=== PATIENT | male | born 1945 | race Caucasian/White ===

== ENCOUNTER → 2016-09-01 | Outpatient (CLI) | payer OTHER, BC ==
[~2016-09-01] MED LIST: ASPI81TA82 PO; ATEN50TA8 PO; ATOR-24 PO; CHOL100010 PO; CLR10 PO; ERGO1CAP35 PO; FLUO20CA35 PO; FOLI1TAB7 PO; INDO-22 PO; NSP500 PO; OMEG10007 PO; WARF5TAB7 PO
--- NOTE | 2016-09-01 16:14 | DIAGNOSTIC IMAGING REPORT ---
CHEST 2 VIEWS ROUTINE CLINICAL HISTORY: Cough. Interstitial lung disease. COMPARISON STUDY: Chest radiograph June 13, [address] March 26, 2016. FINDINGS: There are median sternotomy wires and clips from bypass grafting. Moderate cardiomegaly is unchanged. No pneumothorax or pleural effusion is present. There is no consolidation to suggest pneumonia. Diffuse interstitial thickening has mildly progressed since exam of June 13, 2015. IMPRESSION: 1. Mild progression of diffuse interstitial thickening since exam of June 13, 2015. The findings suggest mild progression of interstitial lung disease. 2. No superimposed consolidation. 3. Moderate cardiomegaly. Electronically signed by: Gregorio Ceja M.D. 09/01/2016 4:12 PM Dictated Date/Time: 09/01/2016 4:08 PM
== END | disposition home or self-care (01) ==
LOC: C.RADBC 15:53
PROVIDERS: ATTEND Physician Assistant Medical
DX: J84.9 Interstitial pulmonary disease, unspecified (principal); R05 Cough; I51.7 Cardiomegaly

== ENCOUNTER → 2016-09-21 | Outpatient (CLI) | payer OTHER, BC | END | disposition home or self-care (01) | LOC: C.LABSPEC 10:15 | PROVIDERS: ATTEND Physician Assistant | DX: R05 Cough (principal) ==

== ENCOUNTER → 2016-10-04 | Outpatient (CLI) | payer OTHER, BC ==
--- NOTE | 2016-10-04 16:16 | DIAGNOSTIC IMAGING REPORT ---
CHEST 2 VIEWS ROUTINE HISTORY: COUGH COMPARISON: Chest 09/01/2016. FINDINGS: No pleural effusions. No pneumothorax. There are postoperative changes. Mild cardiomegaly remains unchanged. Diffuse interstitial thickening most pronounced within the periphery and lung bases persist. This is consistent with chronic interstitial lung disease. No new focal lung consolidations. No evidence for pulmonary edema. IMPRESSION: No change from the prior study. Chronic interstitial changes are again noted. Stable mild cardiomegaly. Electronically signed by: Peter Meadows M.D. 10/04/2016 4:14 PM Dictated Date/Time: 10/04/2016 4:12 PM
== END | disposition home or self-care (01) ==
LOC: C.RADBC 16:02
PROVIDERS: ATTEND Physician Assistant
DX: R05 Cough (principal)

== ENCOUNTER → 2016-12-13 | Outpatient (CLI) | payer OTHER, BC ==
--- NOTE | 2016-12-13 17:10 | DIAGNOSTIC IMAGING REPORT ---
CT OF THE CHEST WITHOUT IV CONTRAST CLINICAL HISTORY: Shortness of breath. Interstitial lung disease. COMPARISON STUDY: Chest CT March 26, 2016. CT DOSE: 387.18 mGy.cm TECHNIQUE: Axial images of the chest were obtained without IV contrast. Images were reviewed in the axial, sagittal, and coronal planes. IV contrast was not administered for this examination. A dose lowering technique was utilized adhering to the principles of ALARA. FINDINGS: Several borderline enlarged mediastinal lymph nodes are unchanged since prior exam. The heart is moderately enlarged. There are median sternotomy wires and postsurgical findings consistent with bypass grafting. There is extensive coronary artery calcification. There is no pericardial effusion. There is a small hiatal hernia. No pneumothorax or pleural effusion is present. Basilar and peripheral predominant groundglass opacities with subpleural reticulation have progressed since exam March 26, 2016. Lungs are suboptimally assessed due to respiratory motion. No honeycombing is present. There is no cavitation. No pneumothorax is present. Central airways are patent. The 5 mm left upper lobe nodule shown on prior exam is less conspicuous on this study. IMPRESSION: 1. Mild progression of basilar and peripheral predominant groundglass opacities with subpleural reticulation since CT of March 26, 2016. The findings represent interstitial lung disease and favor nonspecific interstitial pneumonia (NSIP). No superimposed consolidation. 2. Moderate cardiomegaly. Electronically signed by: Gregorio Ceja M.D. 12/13/2016 5:09 PM Dictated Date/Time: 12/13/2016 4:53 PM
== END | disposition home or self-care (01) ==
LOC: C.CTS 16:20
PROVIDERS: ATTEND Internal Medicine
DX: R06.02 Shortness of breath (principal); I51.7 Cardiomegaly

== ENCOUNTER 2017-07-03 21:20 | Inpatient (IN) | payer OTHER, BC ==
[~2017-07-03] VITALS: Ht 185.4 cm; Wt 81.0 kg
[~2017-07-03 21:20] MED LIST changes: -FOLI1TAB7 PO; +FOLI1TAB8 PO
[2017-07-03] MEDS ORDERED: SODIUM CHLORIDE 0.9% 1000ML 500 ML IV STA (21:56)
[2017-07-03 22:17] LABS: HEMATOCRIT 45.1 % (42-52); HEMOGLOBIN 15.9 g/dL (14.0-18.0); IG# 0.02 K/uL (0.00-0.02); LYMPH % 7.9 %; LYMPH ABS # 0.53 K/uL (1.2-3.4); MEAN CELL VOLUME 81.7 fL (80-100); MEAN CORPUSCULAR HEMOGLOBIN 28.8 pg (25-34); MEAN CORPUSCULAR HGB CONC 35.3 g/dl (32-36); MEAN PLATELET VOLUME 10.1 fL (7.4-10.4); MONO % 12.8 %; MONO ABS # 0.86 K/uL (0.11-0.59); PLATELET COUNT 173 K/uL (130-400); RED CELL DISTRIBUTION WIDTH CV 14.4 % (11.5-14.5); WHITE BLOOD COUNT 6.71 K/uL (4.8-10.8)
--- NOTE | 2017-07-03 22:21 | DIAGNOSTIC IMAGING REPORT ---
CHEST ONE VIEW PORTABLE CLINICAL HISTORY: EVALUATE ALTERED MENTAL STATUS/WEAKNESS pain. Dyspnea. COMPARISON STUDY: 10/04/2016 FINDINGS: Moderate stable cardiomegaly. Prior median sternotomy. Chronic interstitial changes throughout both hemithoraces. Potential superimposed infiltrate left base. IMPRESSION: Moderate stable cardiomegaly and interstitial prominence. Probable superimposed infiltrative process left base. The above report was generated using voice recognition software. It may contain grammatical, syntax or spelling errors. Electronically signed by: Abrahan Ahuja M.D. 07/03/2017 10:19 PM Dictated Date/Time: 07/03/2017 10:18 PM
[2017-07-03 22:28] LABS: INR 1.9 (0.9-1.1); PTT PATIENT 37.1 SECONDS (21.0-31.0)
--- NOTE | 2017-07-03 22:32 | DIAGNOSTIC IMAGING REPORT ---
HEAD WITHOUT CONTRAST (CT) CT DOSE: 712.55 mGy.cm HISTORY: Mental status change EVALUATE ALTERED MENTAL STATUS/WEAKNESS TECHNIQUE: Multiaxial CT images of the head were performed without the use of intravenous contrast. A dose lowering technique was utilized adhering to the principles of ALARA. Comparison: None. Findings: The paranasal sinuses and mastoid air cells are clear. The calvarium and skull base are intact. The ventricles and sulci are within normal limits. There is no mass, hematoma, midline shift, or acute infarct. Impression: No acute intracranial abnormality. The above report was generated using voice recognition software. It may contain grammatical, syntax or spelling errors. Electronically signed by: Abrahan Ahuja M.D. 07/03/2017 10:29 PM Dictated Date/Time: 07/03/2017 10:28 PM
[2017-07-03 22:40] LABS: ALBUMIN 3.1 gm/dl (3.4-5.0); CALCIUM 8.6 mg/dl (8.5-10.1); CREATININE 1.13 mg/dl (0.60-1.40); POTASSIUM 3.6 mmol/L (3.5-5.1)
[2017-07-03] MEDS ORDERED: CZR50 PO ×2 (22:46)
[2017-07-03] MEDS ORDERED: ISOS60TA25 PO ×2 (22:46)
[2017-07-03] MEDS ORDERED: LPT40 PO ×2 (22:46)
[2017-07-03] MEDS ORDERED: FLUO20CA36 PO ×2 (22:46)
[2017-07-03] MEDS ORDERED: ATEN-173 PO ×2 (22:46)
[2017-07-03] MEDS ORDERED: TNR25 PO ×2 (22:46)
[2017-07-03] MEDS ORDERED: CEFTRIAXONE SOD INJ 1 GM ADDVIAL IV STA (22:51)
[2017-07-03 22:52] LABS: TOTAL PROTEIN 7.7 gm/dl (6.4-8.2)
--- NOTE | 2017-07-03 23:34 | History and Physical ---
History & Physical Date & Time of Service: Jul 03, 2017 at 23:34 Chief Complaint: Syncope Primary Care Physician: Gael Lee M.D. History of Present Illness Source: patient, hospital records The patient is a 71-year-old male who presents to the emergency department via EMS with 2 syncopal episodes prior to arrival. He reports feeling generally sick with fever and fatigue over the past few days, and fell asleep several times earlier in the day today. His brother reportedly went to see him today and witnessed 2 episodes of syncope, that occurred during a routine conversation. His brother felt that the patient was confused yesterday when they went out to eat, and reports that his brother has not been eating or drinking well. The patient has history of idiopathic pulmonary fibrosis and wears oxygen at night. He reports taking his Coumadin as directed for atrial fibrillation, and denies any recent episodes of rapid heart rate. Family History GI malignancy Social History Smoking Status: Former Smoker Smokeless Tobacco Use: No Drug Use: none Marital Status: Housing status: lives with family Immunizations History of Influenza Vaccine: Yes Influenza Vaccine Date: Mar 01, 2005 History of Tetanus Vaccine?: No History of Pneumococcal: Unknown History of Hepatitis B Vaccine: No Multi-Drug Resistant Organisms History of MDRO: No Allergies Coded Allergies: No Known Allergies (Verified , 06/13/15) Home Medications Scheduled Atenolol (Atenolol), 50 MG PO QAM Atenolol (Tenormin), 25 MG PO QPM Atorvastatin (Lipitor), 40 MG PO DAILY Fluoxetine HCl (Fluoxetine HCl), 20 MG PO DAILY Isosorbide Mononitrate Ext Rel (Imdur Ext Rel), 60 MG PO DAILY Losartan Potassium (Losartan Potassium), 50 MG PO DAILY Warfarin Sod (Jantoven), 5 MG PO DIRECTED Review of Systems The patient denies chest pain, palpitations, shortness of breath, dyspnea on exertion, cough, lower extremity swelling, sore throat, fevers, chills, sweats, nausea, vomiting, diarrhea , constipation, abdominal pain, pelvic pain, blood in urine or stool, dysuria, urinary frequency or urgency, rash, abnormal bruising or bleeding, imbalance, focal weakness, back or neck pain, or night sweats. The review of systems is otherwise negative other than for that already noted above, and at least 10 systems have been reviewed. Physical Exam Vital Signs Date Time Temp Pulse Resp B/P (MAP) Pulse Ox O2 Delivery O2 Flow Rate FiO2 07/03/17 22:11 Nasal Cannula 2.0 07/03/17 22:01 117/66 07/03/17 21:50 80 21 98 07/03/17 21:39 74 18 123/77 95 Nasal Cannula 2.0 07/03/17 21:33 89 07/03/17 21:31 123/77 07/03/17 21:24 37.2 85 18 123/77 88 Room Air The patient is awake, alert and oriented 3, well developed and well nourished, normocephalic and atraumatic, lying in bed and in no acute distress. HEENT--PERRL, EOMI, mucous membranes and oropharynx dry. Neck--supple. No JVD. No bruits. Thyroid normal, trachea midline, no adenopathy. Heart--normal S1 and S2. No murmurs, rubs or gallops. Lungs--coarse breath sounds bilaterally with wheezes, no respiratory distress, no accessory muscle use. Abdomen--normal bowel sounds and soft. Nontender. Nondistended, no hernias or masses, no organomegaly. Extremities--no cyanosis or clubbing. No edema. There are good distal pulses b/ l. Dermatologic--normal skin turgor, normal color, no abnormal lymph nodes, no rash. Neurologic--cranial nerves II through XII grossly intact. Rheumatologic--normal range of motion. Psychiatric--normal affect. Diagnostics Laboratory Results Results Past 24 Hours Test 07/03/17 21:00 Range/Units White Blood Count 6.71 4.8-10.8 K/uL Red Blood Count 5.52 4.7-6.1 M/uL Hemoglobin 15.9 14.0-18.0 g/dL Hematocrit 45.1 42-52 % Mean Corpuscular Volume 81.7 80-100 fL Mean Corpuscular Hemoglobin 28.8 25-34 pg Mean Corpuscular Hemoglobin Concent 35.3 32-36 g/dl Platelet Count 173 130-400 K/uL Mean Platelet Volume 10.1 7.4-10.4 fL Neutrophils (%) (Auto) 79.0 % Lymphocytes (%) (Auto) 7.9 % Monocytes (%) (Auto) 12.8 % Eosinophils (%) (Auto) 0.0 % Basophils (%) (Auto) 0.0 % Neutrophils # (Auto) 5.30 1.4-6.5 K/uL Lymphocytes # (Auto) 0.53 1.2-3.4 K/uL Monocytes # (Auto) 0.86 0.11-0.59 K/uL Eosinophils # (Auto) 0.00 0-0.5 K/uL Basophils # (Auto) 0.00 0-0.2 K/uL RDW Standard Deviation 43.0 36.4-46.3 fL RDW Coefficient of Variation 14.4 11.5-14.5 % Immature Granulocyte % (Auto) 0.3 % Immature Granulocyte # (Auto) 0.02 0.00-0.02 K/uL Prothrombin Time 19.4 9.0-12.0 SECONDS Prothromb Time International Ratio 1.9 0.9-1.1 Activated Partial Thromboplast Time 37.1 21.0-31.0 SECONDS Partial Thromboplastin Ratio 1.4 Sodium Level 131 136-145 mmol/L Potassium Level 3.6 3.5-5.1 mmol/L Chloride Level 97 98-107 mmol/L Carbon Dioxide Level 22 21-32 mmol/L Anion Gap 12.0 3-11 mmol/L Blood Urea Nitrogen 20 7-18 mg/dl Creatinine 1.13 0.60-1.40 mg/dl Est Creatinine Clear Calc Drug Dose 68.7 ml/min Estimated GFR () 75.9 Estimated GFR (Non- 65.5 BUN/Creatinine Ratio 17.3 10-20 Random Glucose 112 70-99 mg/dl Calcium Level 8.6 8.5-10.1 mg/dl Magnesium Level 1.9 1.8-2.4 mg/dl Total Bilirubin 0.9 0.2-1 mg/dl Aspartate Amino Transf (AST/SGOT) 79 15-37 U/L Alanine Aminotransferase (ALT/SGPT) 41 12-78 U/L Alkaline Phosphatase 79 45-117 U/L Total Creatine Kinase 581 39-308 U/L Troponin I 0.694 0-0.045 ng/ml Pro-B-Type Natriuretic Peptide 3768 0-900 pg/ml Total Protein 7.7 6.4-8.2 gm/dl Albumin 3.1 3.4-5.0 gm/dl Globulin 4.6 2.5-4.0 gm/dl Albumin/Globulin Ratio 0.7 0.9-2 Thyroid Stimulating Hormone (TSH) 4.120 0.300-4.500 uIu/ml Microbiology Results 07/03/17 Blood Culture, Received Pending 07/03/17 Blood Culture, Received Pending Diagnostic Radiology Patient Name: BERTHA DAVID Unit Number: [id number] Dictated: 07/03/172227 Transcribed: 07/03/172227 MS Printed Date/Time: [~ rep prt dt]/[~ rep prt tm] [~ rep ct labl] - [~ rep ct ivnm] [facility] Radiology Department [place] [id number] Dictated: 07/03/172227 Transcribed: 07/03/172227 MS Printed Date/Time: [~ rep prt dt]/[~ rep prt tm] [~ rep ct labl] - [~ rep ct ivnm] HEAD WITHOUT CONTRAST (CT) CT DOSE: 712.55 mGy.cm HISTORY: Mental status change EVALUATE ALTERED MENTAL STATUS/WEAKNESS TECHNIQUE: Multiaxial CT images of the head were performed without the use of intravenous contrast. A dose lowering technique was utilized adhering to the principles of ALARA. Comparison: None. Findings: The paranasal sinuses and mastoid air cells are clear. The calvarium and skull base are intact. The ventricles and sulci are within normal limits. There is no mass, hematoma, midline shift, or acute infarct. Impression: No acute intracranial abnormality. The above report was generated using voice recognition software. It may contain grammatical, syntax or spelling errors. Electronically signed by: Abrahan Ahuja M.D. 07/03/2017 10:29 PM Dictated Date/Time: 07/03/2017 10:28 PM The status of this report is Signed. Draft = Not yet reviewed or approved by Radiologist. Signed = Reviewed and approved by Radiologist. <AttendingPhy></AttendingPhy> <FamilyPhy>Gael Lee M.D.</FamilyPhy> < PrimaryPhy>Gael Lee M.D.</PrimaryPhy> <UnitNumber>[id number]</UnitNumber> <VisitNumber>[id number]</VisitNumber> <PatientName>BERTHA DAVID</ PatientName> <DateOfBirth>1945</DateOfBirth> <Location>[facility]</Location> < ServiceDate>07/03/17</ServiceDate> <MNE>ESINDI</MNE> <OrderingPhy>Papi Vasquez M.D.</OrderingPhy> <OrderingPhyMNE>f rep ord dr blake</OrderingPhyMNE> < DictatingPhyMNE>f rep dict dr blake</DictatingPhyMNE> <CCListMNE>f rep ct mne</ CCListMNE> <AdmittingPhyMNE>f pt admit dr blake</AdmittingPhyMNE> <AttendingPhyMNE >f pt attend dr blake</AttendingPhyMNE> <ConsultingPhyMNE>f pt consult dr blake</ConsultingPhyMNE> <FamilyPhyMNE>f pt fam dr blake</FamilyPhyMNE> <OtherPhyMNE>f pt other dr blake</OtherPhyMNE> < PrimaryPhyMNE>f pt prim care dr blake</PrimaryPhyMNE> <ReferringPhyMNE>f pt referring dr blake</ReferringPhyMNE> Patient Name: BERTHA DAVID Unit Number: [id number] Dictated: 07/03/172217 Transcribed: 07/03/172217 MS Printed Date/Time: [~ rep prt dt]/[~ rep prt tm] [~ rep ct labl] - [~ rep ct ivnm] [facility] [place] [address] Dictated: 07/03/172217 Transcribed: 07/03/172217 MS Printed Date/Time: [~ rep prt dt]/[~ rep prt tm] [~ rep ct labl] - [~ rep ct ivnm] [~ rep ct add3]] CHEST ONE VIEW PORTABLE CLINICAL HISTORY: EVALUATE ALTERED MENTAL STATUS/WEAKNESS pain. Dyspnea. COMPARISON STUDY: 10/04/2016 FINDINGS: Moderate stable cardiomegaly. Prior median sternotomy. Chronic interstitial changes throughout both hemithoraces. Potential superimposed infiltrate left base. IMPRESSION: Moderate stable cardiomegaly and interstitial prominence. Probable superimposed infiltrative process left base. The above report was generated using voice recognition software. It may contain grammatical, syntax or spelling errors. Electronically signed by: Abrahan Ahuja M.D. 07/03/2017 10:19 PM Dictated Date/Time: 07/03/2017 10:18 PM The status of this report is Signed. Draft = Not yet reviewed or approved by Radiologist. Signed = Reviewed and approved by Radiologist. <AttendingPhy></AttendingPhy> <FamilyPhy>Gael Lee M.D.</FamilyPhy> < PrimaryPhy>Gael Lee M.D.</PrimaryPhy> <UnitNumber>[id number]</UnitNumber> <VisitNumber>[id number]</VisitNumber> <PatientName>BERTHA DAVID</ PatientName> <DateOfBirth>1945</DateOfBirth> <Location>[facility]</Location> < ServiceDate>07/03/17</ServiceDate> <MNE>ESINDI</MNE> <OrderingPhy>Papi Vasquez M.D.</OrderingPhy> <OrderingPhyMNE>f rep ord dr lbake</OrderingPhyMNE> < DictatingPhyMNE>f rep dict dr blake</DictatingPhyMNE> <CCListMNE>f rep ct hayden</ CCListMNE> <AdmittingPhyMNE>f pt admit dr blake</AdmittingPhyMNE> <AttendingPhyMNE >f pt attend dr blake</AttendingPhyMNE> <ConsultingPhyMNE>f pt consult dr blake</ConsultingPhyMNE> <FamilyPhyMNE>f pt fam dr blake</FamilyPhyMNE> <OtherPhyMNE>f pt other dr blake</OtherPhyMNE> < PrimaryPhyMNE>f pt prim care dr blake</PrimaryPhyMNE> <ReferringPhyMNE>f pt referring dr blake</ReferringPhyMNE> EKG EKG shows atrial fibrillation at 80 bpm, right bundle branch block, left anterior fascicular block, no acute ST-T changes Impression Assessment and Plan Acute on chronic respiratory failure with hypoxia-- Ceftriaxone 1 g IV daily Levofloxacin 500 mg IV every 24 hours Solu-Medrol 40 mg IV every 8 hours Guaifenesin extended release 600 mg by mouth twice a day Duonebs every 4 hours while awake and every 2 hours when necessary. Nasal cannula 2 L of oxygen titrating to keep pulse ox greater than or equal to 92%. Sputum Gram stain and culture. Influenza A-- Start Tamiflu 75 mg p.o. twice daily CAD/hypertension/history of RI/CHF/atrial fibrillation with controlled rate/ elevated troponin of 0.694-- The patient will be admitted to telemetry for serial cardiac enzymes, serial EKG's, cardiac rhythm monitoring and a 2-D echocardiogram with Dopplers. Continue atenolol 50 mg in the morning and 25 mg in the evening, Imdur extended release 60 mg daily, losartan potassium 50 mg daily and warfarin 5 mg daily. Follow serial CBC with differential, chemistry profile, magnesium and PT/PTT daily. Add aspirin 81 mg daily Consult cardiology. Hyperlipidemia-- Continue atorvastatin 40 mg daily. 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 Y/N: Yes Given or contraindicated: Warfarin (Coumadin) Social Service Consult None Apply
[2017-07-03] MEDS ORDERED: ASPIRIN 324 MG CHEW PO STA (23:43)
[2017-07-03] MEDS ORDERED: NITROGLYCERIN 0.4 MG SL PER TAB CHARGE SL PRN (23:45)
[2017-07-03] MEDS ORDERED: ONDANSETRON 8MG OD TAB PO PRN (23:45)
[2017-07-03] MEDS ORDERED: ACETAMINOPHEN 325 MG TAB PO PRN (23:45)
[2017-07-03] MEDS ORDERED: ASPIRIN 81 MG CHEW PO STA (23:51)
[2017-07-04] VITALS (10 sets, daily range): BP systolic 85–136; BP diastolic 49–83; PULSE 72–95; TEMP 36.4–36.8; O2SAT 94–98; Ht 185.4 cm; Wt 81.0 kg
--- NOTE | 2017-07-04 00:25 | EMERGENCY ROOM VISIT NOTE ---
History Report prepared by Sergio: Dione Ware Under the Supervision of: Dr. Papi Vasquez M.D. First contact with patient: 21:52 Chief Complaint: SYNCOPE Stated Complaint: SYNCOPE Nursing Triage Summary: Pt arrives via ALS with two syncopal episodes, both witnessed by brother. Pt states he thinks he was just standing both times and blacked and hit head off floor both times. States LOC 30 seconds each time. Pt denies happening before. Pt states he has been sick and has had a cough since Tuesday. Hx of Afib and born with some brain damage. Per brother patient didn't seem like himself today. History of Present Illness The patient is a 71 year old male who presents to the Emergency Room with complaints of multiple episodes of syncope today. He presents to the ED by EMS. The patient has been sick for the past couple of days. He has had a fever and felt fatigued. He has fallen asleep several times today because he is fatigued. His brother went to visit him today and witnessed 2 episodes of syncope. They were just talking when he passed out. He possibly hit his head on the ground. He denies any other injury. His brother notes that he seemed confused yesterday when they went out for food. He denies any urinary symptoms or rhinorrhea. He is eating and drinking well. He has a history of idiopathic pulmonary fibrosis. He wears oxygen at night. The patient has a history of CABGx4 and 1 stent. He is on Coumadin for atrial fibrillation. He has had no known sick contacts. Source of History: patient, family Onset: today Position: other (global) Quality: other (syncope) Timing: other (multiple episodes) Associated Symptoms: + fevers, + fatigue, + weakness, No urinary symptoms Review of Systems See HPI for pertinent positives & negatives. A total of 10 systems reviewed and were otherwise negative. Past Medical & Surgical Medical Problems: (1) Acute on chronic respiratory failure with hypoxia (2) Congestive heart failure (3) Myocardial infarct (4) Syncope and collapse Family History GI malignancy Social History Smoking Status: Former Smoker Housing Status: lives alone Current/Historical Medications Scheduled Atenolol (Atenolol), 50 MG PO QAM Atenolol (Tenormin), 25 MG PO QPM Atorvastatin (Lipitor), 40 MG PO DAILY Fluoxetine HCl (Fluoxetine HCl), 20 MG PO DAILY Isosorbide Mononitrate Ext Rel (Imdur Ext Rel), 60 MG PO DAILY Losartan Potassium (Losartan Potassium), 50 MG PO DAILY Warfarin Sod (Jantoven), 5 MG PO DIRECTED Allergies Coded Allergies: No Known Allergies (Verified , 06/13/15) Physical Exam Vital Signs Date Time Temp Pulse Resp B/P (MAP) Pulse Ox O2 Delivery O2 Flow Rate FiO2 07/03/17 23:31 107/72 07/03/17 23:06 77 21 95 07/03/17 23:01 116/68 07/03/17 22:58 94/64 07/03/17 22:11 Nasal Cannula 2.0 07/03/17 22:06 80 32 97 07/03/17 22:01 117/66 07/03/17 21:50 80 21 98 07/03/17 21:39 74 18 123/77 95 Nasal Cannula 2.0 07/03/17 21:33 89 07/03/17 21:31 123/77 07/03/17 21:24 37.2 85 18 123/77 88 Room Air Physical Exam GENERAL: Patient is in no acute distress. HEENT: No acute trauma, normocephalic atraumatic, mucous membranes dry, no nasal congestion, no scleral icterus. NECK: No stridor, no adenopathy, no meningismus, trachea is midline. LUNGS: Crackles bilaterally. Breath sounds equal. No wheezing. HEART: Irregular rhythm. Subtle systolic murmur. Normal rate. ABDOMEN: Soft, nontender, bowel sounds positive, no hernias, no peritonitis. EXTREMITIES: No cyanosis or edema, full range of motion of all the joints without pain or difficulty, no signs for acute trauma. NEUROLOGIC: Oriented x 3, no acute motor or sensory deficits, no focal weakness. SKIN: No rash, no jaundice, no diaphoresis. Medical Decision & Procedures ER Provider Diagnostic Interpretation: X-ray results as stated below per interpretation by me and the radiologist. Radiology results as stated below per my review and radiologist interpretation: CHEST ONE VIEW PORTABLE CLINICAL HISTORY: EVALUATE ALTERED MENTAL STATUS/WEAKNESS pain. Dyspnea. COMPARISON STUDY: 10/04/2016 FINDINGS: Moderate stable cardiomegaly. Prior median sternotomy. Chronic interstitial changes throughout both hemithoraces. Potential superimposed infiltrate left base. IMPRESSION: Moderate stable cardiomegaly and interstitial prominence. Probable superimposed infiltrative process left base. The above report was generated using voice recognition software. It may contain grammatical, syntax or spelling errors. Electronically signed by: Abrahan Ahuja M.D. 07/03/2017 10:19 PM Dictated Date/Time: 07/03/2017 10:18 PM HEAD WITHOUT CONTRAST (CT) CT DOSE: 712.55 mGy.cm HISTORY: Mental status change EVALUATE ALTERED MENTAL STATUS/WEAKNESS TECHNIQUE: Multiaxial CT images of the head were performed without the use of intravenous contrast. A dose lowering technique was utilized adhering to the principles of ALARA. Comparison: None. Findings: The paranasal sinuses and mastoid air cells are clear. The calvarium and skull base are intact. The ventricles and sulci are within normal limits. There is no mass, hematoma, midline shift, or acute infarct. Impression: No acute intracranial abnormality. The above report was generated using voice recognition software. It may contain grammatical, syntax or spelling errors. Electronically signed by: Abrahan Ahuja M.D. 07/03/2017 10:29 PM Dictated Date/Time: 07/03/2017 10:28 PM Radiology results as stated below per my review and [facility] radiologist interpretation: CT Chest Without Contrast: Patchy bilateral interstitial opacities that could relate underlying pulmonary fibrosis, edema or pneumonia. Cardiomegaly and CABG. Cholelithiasis. Small hiatal hernia. Laboratory Results 07/03/17 21:00 Red Blood Count 5.52, Mean Corpuscular Volume 81.7, Mean Corpuscular Hemoglobin 28.8, Mean Corpuscular Hemoglobin Concent 35.3, Mean Platelet Volume 10.1, Neutrophils (%) (Auto) 79.0, Lymphocytes (%) (Auto) 7.9, Monocytes (%) (Auto) 12.8, Eosinophils (%) (Auto) 0.0, Basophils (%) (Auto) 0.0, Neutrophils # (Auto ) 5.30, Lymphocytes # (Auto) 0.53, Monocytes # (Auto) 0.86, Eosinophils # (Auto ) 0.00, Basophils # (Auto) 0.00 07/03/17 21:00 Test 07/03/17 21:00 White Blood Count 6.71 K/uL (4.8-10.8) Red Blood Count 5.52 M/uL (4.7-6.1) Hemoglobin 15.9 g/dL (14.0-18.0) Hematocrit 45.1 % (42-52) Mean Corpuscular Volume 81.7 fL (80-100) Mean Corpuscular Hemoglobin 28.8 pg (25-34) Mean Corpuscular Hemoglobin Concent 35.3 g/dl (32-36) Platelet Count 173 K/uL (130-400) Mean Platelet Volume 10.1 fL (7.4-10.4) Neutrophils (%) (Auto) 79.0 % Lymphocytes (%) (Auto) 7.9 % Monocytes (%) (Auto) 12.8 % Eosinophils (%) (Auto) 0.0 % Basophils (%) (Auto) 0.0 % Neutrophils # (Auto) 5.30 K/uL (1.4-6.5) Lymphocytes # (Auto) 0.53 K/uL (1.2-3.4) Monocytes # (Auto) 0.86 K/uL (0.11-0.59) Eosinophils # (Auto) 0.00 K/uL (0-0.5) Basophils # (Auto) 0.00 K/uL (0-0.2) RDW Standard Deviation 43.0 fL (36.4-46.3) RDW Coefficient of Variation 14.4 % (11.5-14.5) Immature Granulocyte % (Auto) 0.3 % Immature Granulocyte # (Auto) 0.02 K/uL (0.00-0.02) Prothrombin Time 19.4 SECONDS (9.0-12.0) Prothromb Time International Ratio 1.9 (0.9-1.1) Activated Partial Thromboplast Time 37.1 SECONDS (21.0-31.0) Partial Thromboplastin Ratio 1.4 Anion Gap 12.0 mmol/L (3-11) Est Creatinine Clear Calc Drug Dose 68.7 ml/min Estimated GFR () 75.9 Estimated GFR (Non- 65.5 BUN/Creatinine Ratio 17.3 (10-20) Calcium Level 8.6 mg/dl (8.5-10.1) Magnesium Level 1.9 mg/dl (1.8-2.4) Total Bilirubin 0.9 mg/dl (0.2-1) Aspartate Amino Transf (AST/SGOT) 79 U/L (15-37) Alanine Aminotransferase (ALT/SGPT) 41 U/L (12-78) Alkaline Phosphatase 79 U/L (45-117) Total Creatine Kinase 581 U/L (39-308) Troponin I 0.694 ng/ml (0-0.045) Pro-B-Type Natriuretic Peptide 3768 pg/ml (0-900) Total Protein 7.7 gm/dl (6.4-8.2) Albumin 3.1 gm/dl (3.4-5.0) Globulin 4.6 gm/dl (2.5-4.0) Albumin/Globulin Ratio 0.7 (0.9-2) Thyroid Stimulating Hormone (TSH) 4.120 uIu/ml (0.300-4.500) Laboratory results reviewed by me. Medications Administered Medications (Trade) Dose Ordered Sig/Elma Route Start Time Stop Time Status Last Admin Dose Admin Sodium Chloride 500 ml @ 999 mls/hr Q31M STAT IV 07/03/17 21:56 07/03/17 22:26 DC 07/03/17 22:12 999 MLS/HR Ceftriaxone Sodium (Rocephin Inj) 1 gm NOW STAT IV 07/03/17 22:51 07/03/17 22:52 DC 07/03/17 23:46 1 GM ECG Indication: syncope Rate (beats per minute): 80 Rhythm: atrial fibrillation Findings: PVC, RBBB, other (no ST elevation) Change: Patient's electrocardiogram interpreted by me. ED Course 2153: The patient was evaluated in room A11B. A complete history and physical exam was performed. 2155: NSS 500 ml @ 999 mls/hr IV. 2251: Rocephin Inj 1 gm IV. 2311: I discussed the patient's case with Dr. Chris, [facility] hospitalist. The patient will be evaluated for further management. 0038: Tamiflu 75 mg PO. Medical Decision Differential diagnoses considered include influenza, flu like illness, pneumonia , dehydration, electrolyte imbalance, anemia, dysrhythmia, stroke, intracranial bleeding, [place]. There is no leukocytosis or concerning anemia. No significant electrolyte abnormality or kidney failure. There was no hepatitis. EKG showed an A. fib with a right bundle branch block, no acute ischemia. Cardiac enzyme testing times one does show an elevation to the troponin, this could be consistent with cardiac strain or injury. Influenza testing was positive for influenza A. Blood cultures are pending. INR was elevated consistent with his Coumadin use. Chest x-ray shows some diffuse congestion, likely consistent with his pulmonary fibrosis. The radiologist questioned an infiltrate at the left base. Chest CT shows diffuse congestion consistent with pulmonary fibrosis or pneumonia. Brain CT shows no acute bleed or mass effect. The patient appeared to be in a euthyroid state. The patient received IV saline, IV ceftriaxone. He was given oral Tamiflu. The patient presents with weakness, fever, some confusion and syncope 2. He does require a hospital stay. He appears to have influenza and possibly a pneumonia. He is dehydrated. There is an elevation to his cardiac troponin and certainly, cardiac injury is a concern. I spoke to the patient and case management. The on-call hospitalist was consulted. Head Trauma GCS Score: 14 Medication Reconcilliation Current Medication List: was personally reviewed by me Blood Pressure Screening Patient's blood pressure: Normal blood pressure Blood pressure disposition: Did not require urgent referral Consults Time Called: 2308 Consulting Physician: Dr. Chris, [facility] hospitalist Returned Call: [phone] Discussed the patient's case. The patient will be evaluated for further management. Impression Primary Impression: Syncope Additional Impressions: Weakness Elevated troponin Head trauma Influenza A Scribe Attestation The scribe's documentation has been prepared under my direction and personally reviewed by me in its entirety. I confirm that the note above accurately reflects all work, treatment, procedures, and medical decision making performed by me. Departure Information Dispostion Being Evaluated By Hospitalist Referrals Gael Lee M.D. (PCP) Patient Instructions My [facility] Problem Qualifiers
[2017-07-04 00:29] LABS: INFLUENZA A PCR POS for Influ A (NEG); INFLUENZA B PCR Neg for Influ B (NEG)
[2017-07-04] MEDS ORDERED: OSELTAMIVIR PHOSPHATE 75 MG CAP PO STA (00:38)
[2017-07-04] MEDS ORDERED: IPRATROPIUM BROMIDE NEB SOLN 0.02% 2.5 ML VIAL INH PRN (01:30)
[2017-07-04] MEDS ORDERED: LEVALBUTEROL 1.25MG/0.5ML NEB INH PRN (01:30)
[2017-07-04] MEDS: METHYLPREDNISOLONE IV 40 MG in SYRINGE 0 ML IV SCH ×2 (02:17→07:55)
[2017-07-04] MEDS: LEVOFLOXACIN / D5W 500 MG in PREMIXED IN D5W 100 ML IV SCH (02:17)
[2017-07-04] MEDS: NSS + 20MEQ KCL 1000ML 1,000 ML IV SCH ×2 (02:17→16:32)
[2017-07-04] MEDS ORDERED: LEVALBUTEROL/IPRATROPIUM NEB INH SCH (03:00)
--- NOTE | 2017-07-04 07:12 | DIAGNOSTIC IMAGING REPORT ---
CT OF THE CHEST WITHOUT IV CONTRAST CLINICAL HISTORY: Syncope. Evaluate for pneumonia. COMPARISON STUDY: Chest CT December 13, 2016 and chest radiograph July 03, 2017. CT DOSE: 356.14 mGy.cm TECHNIQUE: Axial images of the chest were obtained without IV contrast. Images were reviewed in the axial, sagittal, and coronal planes. IV contrast was not administered for this examination. A dose lowering technique was utilized adhering to the principles of ALARA. FINDINGS: There are median sternotomy wires and postsurgical findings consistent with bypass grafting. Extensive coronary artery calcification is noted. There is moderate cardiomegaly. There is no pericardial effusion. A small hiatal hernia is noted. No pneumothorax or pleural effusion is noted. There is basilar and peripheral predominant subpleural reticulation and groundglass opacities. There is no honeycombing. Findings have mildly progressed since exam of December 13, 2016. Lungs are suboptimally assessed due to respiratory motion. No suspicious osseous lesions are present. Gallstones are noted within the gallbladder. Prominent mediastinal lymph nodes are unchanged. IMPRESSION: 1. Interval increase in basilar peripheral predominant groundglass opacities and subpleural reticulation since chest CT of December 13, 2016. 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 A superimposed infectious process or pulmonary edema could appear similar although are considered less likely. 2. Moderate cardiomegaly. 3. Small hiatal hernia. 4. Cholelithiasis. Electronically signed by: Gregorio Ceja M.D. 07/04/2017 7:11 AM Dictated Date/Time: 07/04/2017 7:02 AM
[2017-07-04] MEDS: LEVALBUTEROL 1.25MG/0.5ML NEB INH SCH ×3 (07:21→19:19)
[2017-07-04] MEDS: IPRATROPIUM BROMIDE NEB SOLN 0.02% 2.5 ML VIAL INH SCH ×3 (07:21→19:19)
[2017-07-04 07:53] LABS: HEMATOCRIT 42.5 % (42-52); HEMOGLOBIN 14.8 g/dL (14.0-18.0); IG# 0.01 K/uL (0.00-0.02); LYMPH % 17.8 %; LYMPH ABS # 0.63 K/uL (1.2-3.4); MEAN CORPUSCULAR HEMOGLOBIN 28.6 pg (25-34); MEAN CORPUSCULAR HGB CONC 34.8 g/dl (32-36); MEAN PLATELET VOLUME 9.3 fL (7.4-10.4); MONO % 6.8 %; MONO ABS # 0.24 K/uL (0.11-0.59); NEUT % 75.1 %; NEUT ABS # 2.65 K/uL (1.4-6.5); PLATELET COUNT 133 K/uL (130-400); RED CELL DISTRIBUTION WIDTH CV 14.7 % (11.5-14.5); RED CELL DISTRIBUTION WIDTH SD 44.3 fL (36.4-46.3); WHITE BLOOD COUNT 3.53 K/uL (4.8-10.8)
[2017-07-04] MEDS: ISOSORBIDE MONONITRATE 60 MG TABCR PO SCH ×2 (07:54→08:02)
[2017-07-04] MEDS: GUAIFENESIN 600 MG TABCR PO SCH ×2 (07:54→21:07)
[2017-07-04] MEDS: ASPIRIN 81 MG CHEW PO SCH (07:55)
[2017-07-04] MEDS: ATORVASTATIN 40 MG TAB PO SCH (07:56)
[2017-07-04] MEDS: LOSARTAN POTASSIUM 50 MG TAB PO SCH ×2 (07:56→08:01)
[2017-07-04] MEDS: FLUOXETINE HCL 20 MG CAP PO SCH (07:58)
[2017-07-04] MEDS: OSELTAMIVIR PHOSPHATE 75 MG CAP PO SCH ×2 (07:59→21:07)
[2017-07-04 08:12] LABS: INR 2.2 (0.9-1.1); PTT PATIENT 39.9 SECONDS (21.0-31.0)
--- NOTE | 2017-07-04 08:16 | Progress Note ---
Subjective Date of Service: Jul 04, 2017. Subjective Patient cannot recall events of the syncopal episodes he feels a little bit better today his blood pressure remains somewhat low he likely has been dehydrated from influenza and complicated by his atrial fibrillation he still remains somewhat orthostatic Problem List Medical Problems: (1) Elevated troponin Status: Acute (2) Head trauma Status: Acute (3) Influenza A Status: Acute (4) Syncope Status: Acute (5) Weakness Status: Acute Review of Systems Constitutional: + weakness, + fatigue, No fever, No chills Respiratory: + cough, + shortness of breath, + dyspnea on exertion (right) Cardiac: No chest pain, No orthopnea (women I2 she is loose which list you have which list you have room all yet way she never she's been here for a weekend maybe she came from mom's admit), No PND, No edema Abdomen: No pain, No nausea, No vomiting, No diarrhea ([place] [facility] her home for 2 days and then came back area and) Musculoskeletal: No joint pain, No muscle pain (the back contractures at figure out why) Objective Vital Signs Date Time Temp Pulse Resp B/P (MAP) Pulse Ox O2 Delivery O2 Flow Rate FiO2 07/04/17 04:09 36.4 95 17 102/49 (66) 98 Nasal Cannula 2.0 89 115/75 (88) 89 89/55 (66) 07/04/17 04:00 Nasal Cannula 2.0 07/04/17 01:15 36.4 85 20 100/71 94 Nasal Cannula 2.0 93 85/60 07/04/17 00:43 37.2 87 20 111/63 95 07/04/17 00:36 87 20 95 Nasal Cannula 2.0 07/04/17 00:31 07/04/17 00:06 76 29 07/04/17 00:01 111/63 07/03/17 23:48 117/67 07/03/17 23:31 107/72 07/03/17 23:06 77 21 95 07/03/17 23:01 116/68 07/03/17 22:58 94/64 07/03/17 22:11 Nasal Cannula 2.0 07/03/17 22:06 80 32 97 07/03/17 22:01 117/66 07/03/17 21:50 80 21 98 07/03/17 21:39 74 18 123/77 95 Nasal Cannula 2.0 07/03/17 21:33 89 07/03/17 21:31 123/77 07/03/17 21:24 37.2 85 18 123/77 88 Room Air Physical Exam General Appearance: WD/WN, + mild distress ( and she came back encephalopathic as of the baclofen) Eyes: normal inspection, sclerae normal Neck: supple, no JVD (was probably too high in cumulative made her goofy) Respiratory/Chest: chest non-tender, + decreased breath sounds, + accessory muscle use (so then) Cardiovascular: regular rate, rhythm, no murmur Abdomen: normal bowel sounds, non tender, soft Extremities: no pedal edema, no calf tenderness Laboratory Results Last 24 Hours Test 07/03/17 21:00 07/03/17 23:45 07/04/17 07:27 White Blood Count 6.71 K/uL 3.53 K/uL Red Blood Count 5.52 M/uL 5.18 M/uL Hemoglobin 15.9 g/dL 14.8 g/dL Hematocrit 45.1 % 42.5 % Mean Corpuscular Volume 81.7 fL 82.0 fL Mean Corpuscular Hemoglobin 28.8 pg 28.6 pg Mean Corpuscular Hemoglobin Concent 35.3 g/dl 34.8 g/dl Platelet Count 173 K/uL 133 K/uL Mean Platelet Volume 10.1 fL 9.3 fL Neutrophils (%) (Auto) 79.0 % 75.1 % Lymphocytes (%) (Auto) 7.9 % 17.8 % Monocytes (%) (Auto) 12.8 % 6.8 % Eosinophils (%) (Auto) 0.0 % 0.0 % Basophils (%) (Auto) 0.0 % 0.0 % Neutrophils # (Auto) 5.30 K/uL 2.65 K/uL Lymphocytes # (Auto) 0.53 K/uL 0.63 K/uL Monocytes # (Auto) 0.86 K/uL 0.24 K/uL Eosinophils # (Auto) 0.00 K/uL 0.00 K/uL Basophils # (Auto) 0.00 K/uL 0.00 K/uL RDW Standard Deviation 43.0 fL 44.3 fL RDW Coefficient of Variation 14.4 % 14.7 % Immature Granulocyte % (Auto) 0.3 % 0.3 % Immature Granulocyte # (Auto) 0.02 K/uL 0.01 K/uL Prothrombin Time 19.4 SECONDS 22.7 SECONDS Prothromb Time International Ratio 1.9 2.2 Activated Partial Thromboplast Time 37.1 SECONDS 39.9 SECONDS Partial Thromboplastin Ratio 1.4 1.5 Sodium Level 131 mmol/L Potassium Level 3.6 mmol/L Chloride Level 97 mmol/L Carbon Dioxide Level 22 mmol/L Anion Gap 12.0 mmol/L Blood Urea Nitrogen 20 mg/dl Creatinine 1.13 mg/dl Est Creatinine Clear Calc Drug Dose 68.7 ml/min Estimated GFR () 75.9 Estimated GFR (Non- 65.5 BUN/Creatinine Ratio 17.3 Random Glucose 112 mg/dl Calcium Level 8.6 mg/dl Magnesium Level 1.9 mg/dl Total Bilirubin 0.9 mg/dl Aspartate Amino Transf (AST/SGOT) 79 U/L Alanine Aminotransferase (ALT/SGPT) 41 U/L Alkaline Phosphatase 79 U/L Total Creatine Kinase 581 U/L Troponin I 0.694 ng/ml Pro-B-Type Natriuretic Peptide 3768 pg/ml Total Protein 7.7 gm/dl Albumin 3.1 gm/dl Globulin 4.6 gm/dl Albumin/Globulin Ratio 0.7 Thyroid Stimulating Hormone (TSH) 4.120 uIu/ml Influenza Type A (RT-PCR) POS for Influ A Influenza Type B (RT-PCR) Neg for Influ B Creatine Kinase MB Ratio Assessment and Plan 71 M Acute on chronic respiratory failure with hypoxia--infgluenza A and possible type 2 [place] Acute bronchitis exacerbating chronic respiratory failure Ceftriaxone 1 g IV daily Levofloxacin Tamiflu Acute on Chronic respiratory failure improving Solu-Medrol 40 mg IV taper dose as able Guaifenesin, Duonebs every 4 hours while awake and every 2 hours when necessary. Nasal cannula 2 L of oxygen titrating to keep pulse ox greater than or equal to 92%. CAD/hypertension/history of [place]/CHF/atrial fibrillation with controlled rate/ elevated troponin of 0.694--type 2 mi Pending echocardiogram atenolol 50 mg in the morning and 25 mg in the evening, Imdur extended release 60 mg daily, losartan potassium 50 mg daily and warfarin 5 mg daily. Added aspirin 81 mg daily, INR slightly low at 1.9 Consult cardiology. Hyperlipidemia--and secondary cardiac risk reduction atorvastatin 40 mg daily. Depression--fluoxetine 20 mg daily
[2017-07-04 08:35] LABS: ALBUMIN 2.8 gm/dl (3.4-5.0); CALCIUM 8.4 mg/dl (8.5-10.1); CREATININE 1.07 mg/dl (0.60-1.40); POTASSIUM 3.9 mmol/L (3.5-5.1)
[2017-07-04 08:38] LABS: CKMB 5.9 ng/ml (0.5-3.6)
--- NOTE | 2017-07-04 10:53 | Medical Student: [facility] ---
Med Student Progress Note Date of Service Jul 04, 2017. Subjective Pt evaluation today including: conversation w/ patient This is a 71-year-old male with a history of afib, idiopathic pulmonary fibrosis , and CABGx4 with stent x1 who presented to the ED 07/03 with witness syncopaol episode. He states that he was standing in his kitchen talking to his brother, "blacked out", and hit his head. He was unconscious for about 30 seconds per brother's story in the ED. It is unclear if he felt dizzy or lightheaded prior to the episode; he says it happened so fast that he does not remember. He has also had a fever and cough since 07/01, and he test positive for influenza A in the ED. Troponin was 0.694 but EKG in the ED showed no acute changes, afib with RBBB. CXR showed possible infiltrate in the left lower lobe. Today he is feeling better than when he came in but is still coughing a lot. He is on nasal cannula, 2L, maintaining sats. Has been afebrile since admission. Denies chest pain, headache, nausea, vomiting, abdominal pain, calf pain. Review of Systems Constitutional: + fever, No chills, No sweats Eyes: No worsening of vision ENT: No hearing loss, No sore throat Respiratory: + cough, + sputum, + shortness of breath Cardiac: No chest pain, No orthopnea Abdomen: No pain, No nausea Musculoskeletal: No muscle pain, No swelling Male : No dysuria Neurologic: + weakness, + problem reported (syncope) Heme: No abnormal bleeding/bruising Skin: No rash, No itch All Other Systems: Reviewed and Negative Objective Vital Signs Date Time Temp Pulse Resp B/P (MAP) Pulse Ox O2 Delivery O2 Flow Rate FiO2 07/04/17 08:12 36.5 75 20 124/69 (87) 95 Nasal Cannula 2.0 07/04/17 08:00 Nasal Cannula 2.0 07/04/17 07:20 73 18 97 Nasal Cannula 2.0 07/04/17 04:09 36.4 95 17 102/49 (66) 98 Nasal Cannula 2.0 89 115/75 (88) 89 89/55 (66) 07/04/17 04:00 Nasal Cannula 2.0 07/04/17 01:15 36.4 85 20 100/71 94 Nasal Cannula 2.0 93 85/60 07/04/17 00:43 37.2 87 20 111/63 95 07/04/17 00:36 87 20 95 Nasal Cannula 2.0 07/04/17 00:31 07/04/17 00:06 76 29 07/04/17 00:01 111/63 07/03/17 23:48 117/67 07/03/17 23:31 107/72 07/03/17 23:06 77 21 95 07/03/17 23:01 116/68 07/03/17 22:58 94/64 07/03/17 22:11 Nasal Cannula 2.0 07/03/17 22:06 80 32 97 07/03/17 22:01 117/66 07/03/17 21:50 80 21 98 07/03/17 21:39 74 18 123/77 95 Nasal Cannula 2.0 07/03/17 21:33 89 07/03/17 21:31 123/77 07/03/17 21:24 37.2 85 18 123/77 88 Room Air Physical Exam General Appearance: WD/WN, + mild distress Eyes: bilateral eyes normal inspection ENT: normal ENT inspection Neck: supple, no adenopathy Respiratory/Chest: chest non-tender, + decreased breath sounds, + crackles ( bilateral bases) Cardiovascular: no edema, + systolic murmur, + irregularly irregular Abdomen: normal bowel sounds, non tender, soft Extremities: normal range of motion, non-tender Neurologic/Psychiatric: alert, normal mood/affect, oriented x 3 Skin: normal color, warm/dry Laboratory Results Last 24 Hours Test 07/03/17 21:00 07/03/17 23:45 07/04/17 07:27 White Blood Count 6.71 K/uL 3.53 K/uL Red Blood Count 5.52 M/uL 5.18 M/uL Hemoglobin 15.9 g/dL 14.8 g/dL Hematocrit 45.1 % 42.5 % Mean Corpuscular Volume 81.7 fL 82.0 fL Mean Corpuscular Hemoglobin 28.8 pg 28.6 pg Mean Corpuscular Hemoglobin Concent 35.3 g/dl 34.8 g/dl Platelet Count 173 K/uL 133 K/uL Mean Platelet Volume 10.1 fL 9.3 fL Neutrophils (%) (Auto) 79.0 % 75.1 % Lymphocytes (%) (Auto) 7.9 % 17.8 % Monocytes (%) (Auto) 12.8 % 6.8 % Eosinophils (%) (Auto) 0.0 % 0.0 % Basophils (%) (Auto) 0.0 % 0.0 % Neutrophils # (Auto) 5.30 K/uL 2.65 K/uL Lymphocytes # (Auto) 0.53 K/uL 0.63 K/uL Monocytes # (Auto) 0.86 K/uL 0.24 K/uL Eosinophils # (Auto) 0.00 K/uL 0.00 K/uL Basophils # (Auto) 0.00 K/uL 0.00 K/uL RDW Standard Deviation 43.0 fL 44.3 fL RDW Coefficient of Variation 14.4 % 14.7 % Immature Granulocyte % (Auto) 0.3 % 0.3 % Immature Granulocyte # (Auto) 0.02 K/uL 0.01 K/uL Prothrombin Time 19.4 SECONDS 22.7 SECONDS Prothromb Time International Ratio 1.9 2.2 Activated Partial Thromboplast Time 37.1 SECONDS 39.9 SECONDS Partial Thromboplastin Ratio 1.4 1.5 Sodium Level 131 mmol/L 135 mmol/L Potassium Level 3.6 mmol/L 3.9 mmol/L Chloride Level 97 mmol/L 102 mmol/L Carbon Dioxide Level 22 mmol/L 23 mmol/L Anion Gap 12.0 mmol/L 10.0 mmol/L Blood Urea Nitrogen 20 mg/dl 20 mg/dl Creatinine 1.13 mg/dl 1.07 mg/dl Est Creatinine Clear Calc Drug Dose 68.7 ml/min 33.1 ml/min Estimated GFR () 75.9 81.1 Estimated GFR (Non- 65.5 70.0 BUN/Creatinine Ratio 17.3 18.7 Random Glucose 112 mg/dl 115 mg/dl Calcium Level 8.6 mg/dl 8.4 mg/dl Magnesium Level 1.9 mg/dl 2.2 mg/dl Total Bilirubin 0.9 mg/dl 0.6 mg/dl Aspartate Amino Transf (AST/SGOT) 79 U/L 72 U/L Alanine Aminotransferase (ALT/SGPT) 41 U/L 38 U/L Alkaline Phosphatase 79 U/L 72 U/L Total Creatine Kinase 581 U/L 602 U/L Troponin I 0.694 ng/ml 0.533 ng/ml Pro-B-Type Natriuretic Peptide 3768 pg/ml Total Protein 7.7 gm/dl 7.0 gm/dl Albumin 3.1 gm/dl 2.8 gm/dl Globulin 4.6 gm/dl Albumin/Globulin Ratio 0.7 Thyroid Stimulating Hormone (TSH) 4.120 uIu/ml Influenza Type A (RT-PCR) POS for Influ A Influenza Type B (RT-PCR) Neg for Influ B Direct Bilirubin 0.2 mg/dl Creatine Kinase MB 5.9 ng/ml Creatine Kinase MB Ratio 1.0 Hepatitis C Antibody Screen NEG Assessment and Plan Assessment and Plan: Assessment: This is a 71-year-old male with a history of idiopathic pulmonary fibrosis, CABG.4 with stent x1, and afib who presented to the ED with a syncopal episode. DDx includes orthostasis, dehydration due to illness, afib episode, stroke, electrolyte abnormality, cardiac structural abnormality. Plan: Acute on chronic respiratory failure with hypoxia - DuoNeb q4 - O2 via nasal cannula - currently on 2L with sats maintained - Can continue guaifenesin 600 mg q12 - D/C IV methylprednisolone - D/C Levaquin and Ceftriaxone - acute hypoxia likely due to influenza; will add back if patient does not improve Influenza - Tamiflu 75 mg PO q12 CAD/HTN/afib - Trop = 0.694 in ED 07/03, was decreased 07/04; will trend to ensure resolution - On tele, monitor afib - Consider cardio consult with repeat echo for possible structural dysfunction leading to syncope - Continue atenolol, 50 mg AM and 25 mg PM - Continue Imdur 60 mg daily - Continue losartan 50 mg daily - Continue warfarin 5 mg daily - INR 07/04 = 2.2 Hyperlipidemia - Atorvastatin 40 mg daily Depression - Fluoxetine 20 mg daily VTE prophylaxis - On warfarin, INR 2.2 Full code
[2017-07-04] MEDS ORDERED: WARFARIN SOD 5 MG TAB PO SCH (16:00)
[2017-07-04 16:09] LABS: CKMB 5.6 ng/ml (0.5-3.6)
[2017-07-05] VITALS (8 sets, daily range): BP systolic 104–156; BP diastolic 64–96; PULSE 64–98; TEMP 36.4–36.8; O2SAT 92–99
[2017-07-05] MEDS ORDERED: CEFTRIAXONE SOD INJ 1 GM in DEXTROSE 5% ADD-VANTAGE 50ML 50 ML IV SCH ×2
[2017-07-05] MEDS: LEVOFLOXACIN / D5W 500 MG in PREMIXED IN D5W 100 ML IV SCH (01:05)
[2017-07-05] MEDS: LEVALBUTEROL 1.25MG/0.5ML NEB INH SCH ×2 (01:55→07:22)
[2017-07-05] MEDS: IPRATROPIUM BROMIDE NEB SOLN 0.02% 2.5 ML VIAL INH SCH ×2 (01:55→07:22)
[2017-07-05] MEDS: NSS + 20MEQ KCL 1000ML 1,000 ML IV SCH (05:42)
[2017-07-05 06:19] LABS: BASO % 0.2 %; BASO ABS # 0.01 K/uL (0-0.2); HEMATOCRIT 40.4 % (42-52); IG# 0.01 K/uL (0.00-0.02); LYMPH ABS # 0.58 K/uL (1.2-3.4); MEAN CELL VOLUME 81.8 fL (80-100); MEAN CORPUSCULAR HEMOGLOBIN 28.3 pg (25-34); MEAN CORPUSCULAR HGB CONC 34.7 g/dl (32-36); MEAN PLATELET VOLUME 9.5 fL (7.4-10.4); MONO % 13.3 %; NEUT % 75.3 %; NEUT ABS # 3.95 K/uL (1.4-6.5); PLATELET COUNT 122 K/uL (130-400); RED CELL DISTRIBUTION WIDTH CV 14.4 % (11.5-14.5); RED CELL DISTRIBUTION WIDTH SD 43.1 fL (36.4-46.3); WHITE BLOOD COUNT 5.25 K/uL (4.8-10.8)
[2017-07-05 06:35] LABS: PTT PATIENT 39.9 SECONDS (21.0-31.0)
[2017-07-05 07:00] LABS: ALBUMIN 2.6 gm/dl (3.4-5.0); CALCIUM 7.9 mg/dl (8.5-10.1); CREATININE 0.99 mg/dl (0.60-1.40); TOTAL PROTEIN 6.5 gm/dl (6.4-8.2)
[2017-07-05 07:24] LABS: INR 3.9 (0.9-1.1)
[2017-07-05] MEDS: ATORVASTATIN 40 MG TAB PO SCH (07:42)
[2017-07-05] MEDS: OSELTAMIVIR PHOSPHATE 75 MG CAP PO SCH ×2 (07:43→19:23)
[2017-07-05] MEDS: ISOSORBIDE MONONITRATE 60 MG TABCR PO SCH (07:43)
[2017-07-05] MEDS: LOSARTAN POTASSIUM 50 MG TAB PO SCH (07:43)
[2017-07-05] MEDS: ASPIRIN 81 MG CHEW PO SCH (07:43)
[2017-07-05] MEDS: GUAIFENESIN 600 MG TABCR PO SCH ×2 (07:43→19:22)
[2017-07-05] MEDS: FLUOXETINE HCL 20 MG CAP PO SCH (07:43)
--- NOTE | 2017-07-05 07:56 | Medical Student: [facility] ---
Med Student Progress Note Date of Service Jul 05, 2017. Subjective Pt evaluation today including: conversation w/ patient Patient is feeling better. States he is tired but is coughing less. Denies fever , chills, increased shortness of breath, chest pain. Still maintaining O2 sats on 2L nasal cannula which is his baseline. Review of Systems Constitutional: No fever, No chills ENT: No unusual epistaxis, No sore throat Respiratory: + cough, + shortness of breath (chronic), No wheezing Cardiac: No chest pain, No orthopnea Abdomen: No pain, No nausea, No vomiting Musculoskeletal: No joint pain, No swelling Male : No dysuria, No urinary frequency Neurologic: + weakness, No numbness/tingling Skin: No rash, No itch All Other Systems: Reviewed and Negative Objective Vital Signs Date Time Temp Pulse Resp B/P (MAP) Pulse Ox O2 Delivery O2 Flow Rate FiO2 07/05/17 07:22 77 18 99 Nasal Cannula 2.0 07/05/17 04:00 Nasal Cannula 2.0 07/05/17 03:35 36.6 77 22 138/87 (104) 94 2.0 07/04/17 23:59 Nasal Cannula 2.0 07/04/17 23:38 36.8 80 20 134/78 (96) 98 Nasal Cannula 2.0 77 133/81 (98) 78 115/76 (89) 07/04/17 20:00 Nasal Cannula 2.0 07/04/17 19:21 90 18 98 Nasal Cannula 2.0 07/04/17 19:20 36.6 94 18 136/83 (100) 97 Nasal Cannula 3.0 07/04/17 15:37 36.7 92 18 124/70 (88) 97 Nasal Cannula 2.0 07/04/17 15:13 Nasal Cannula 2.0 07/04/17 14:02 72 18 97 Nasal Cannula 2.0 07/04/17 11:50 36.5 79 19 108/74 (85) 97 Nasal Cannula 2.0 07/04/17 11:48 Nasal Cannula 2.0 07/04/17 08:12 36.5 75 20 124/69 (87) 95 Nasal Cannula 2.0 07/04/17 08:00 Nasal Cannula 2.0 Physical Exam General Appearance: WD/WN, + mild distress Eyes: bilateral eyes normal inspection ENT: normal ENT inspection, hearing grossly normal Neck: supple, no adenopathy Respiratory/Chest: chest non-tender, + decreased breath sounds, + crackles Cardiovascular: no edema, + systolic murmur, + irregularly irregular Abdomen: normal bowel sounds, non tender, soft Extremities: normal range of motion, non-tender Neurologic/Psychiatric: alert, normal mood/affect, oriented x 3 Skin: normal color, warm/dry Laboratory Results Last 24 Hours Test 07/04/17 15:36 07/05/17 06:03 Total Creatine Kinase 571 U/L Creatine Kinase MB 5.6 ng/ml Creatine Kinase MB Ratio 1.0 Troponin I 0.307 ng/ml White Blood Count 5.25 K/uL Red Blood Count 4.94 M/uL Hemoglobin 14.0 g/dL Hematocrit 40.4 % Mean Corpuscular Volume 81.8 fL Mean Corpuscular Hemoglobin 28.3 pg Mean Corpuscular Hemoglobin Concent 34.7 g/dl Platelet Count 122 K/uL Mean Platelet Volume 9.5 fL Neutrophils (%) (Auto) 75.3 % Lymphocytes (%) (Auto) 11.0 % Monocytes (%) (Auto) 13.3 % Eosinophils (%) (Auto) 0.0 % Basophils (%) (Auto) 0.2 % Neutrophils # (Auto) 3.95 K/uL Lymphocytes # (Auto) 0.58 K/uL Monocytes # (Auto) 0.70 K/uL Eosinophils # (Auto) 0.00 K/uL Basophils # (Auto) 0.01 K/uL RDW Standard Deviation 43.1 fL RDW Coefficient of Variation 14.4 % Immature Granulocyte % (Auto) 0.2 % Immature Granulocyte # (Auto) 0.01 K/uL Prothrombin Time 40.3 SECONDS Prothromb Time International Ratio 3.9 Activated Partial Thromboplast Time 39.9 SECONDS Partial Thromboplastin Ratio 1.5 Sodium Level 136 mmol/L Potassium Level 4.0 mmol/L Chloride Level 106 mmol/L Carbon Dioxide Level 24 mmol/L Anion Gap 6.0 mmol/L Blood Urea Nitrogen 19 mg/dl Creatinine 0.99 mg/dl Est Creatinine Clear Calc Drug Dose 78.4 ml/min Estimated GFR () 89.1 Estimated GFR (Non- 76.8 BUN/Creatinine Ratio 19.5 Random Glucose 102 mg/dl Calcium Level 7.9 mg/dl Magnesium Level 1.9 mg/dl Total Bilirubin 0.4 mg/dl Direct Bilirubin 0.1 mg/dl Aspartate Amino Transf (AST/SGOT) 74 U/L Alanine Aminotransferase (ALT/SGPT) 48 U/L Alkaline Phosphatase 70 U/L Total Protein 6.5 gm/dl Albumin 2.6 gm/dl Assessment and Plan Assessment and Plan: Assessment: This is a 71-year-old male with a history of idiopathic pulmonary fibrosis, CABG.4 with stent x1, and afib who presented to the ED with a syncopal episode. He has also had a fever and cough since 07/01, and he test positive for influenza A in the ED. Troponin was 0.694 but EKG in the ED showed no acute changes, afib with RBBB. CXR showed possible infiltrate in the left lower lobe. DDx includes orthostasis, dehydration due to illness, afib episode, stroke, electrolyte abnormality, cardiac structural abnormality. Plan: Acute on chronic respiratory failure with hypoxia - DuoNeb q4 - O2 via nasal cannula - currently on 2L with sats maintained - Can continue guaifenesin 600 mg q12 - D/C IV methylprednisolone 07/04 - D/C Levaquin and Ceftriaxone 07/04 - acute hypoxia likely due to influenza; will add back if patient does not improve Influenza - Tamiflu 75 mg PO q12 CAD/HTN/afib - Trop = 0.694 in ED 07/03, has decreased daily; will trend to ensure resolution can consider calling this type II OR - On tele, monitor afib - Consider cardio consult with repeat echo for possible structural dysfunction leading to syncope - Continue atenolol, 50 mg AM and 25 mg PM - Continue Imdur 60 mg daily - Continue losartan 50 mg daily - Continue warfarin 5 mg daily - INR 07/05 = 3.9, could discuss the patient typically takes 7 it was erroneously reduced at 3 on presentation Hyperlipidemia is a secondary risk prevention or true hyperlipidemia treatment - Atorvastatin 40 mg daily Depression - Fluoxetine 20 mg daily VTE prophylaxis - On warfarin, INR 3.9 07/05 Could include discussion of his movement issues requiring PT and how Parkinson' s disease may impact this Full code
--- NOTE | 2017-07-05 18:02 | Progress Note ---
Subjective Date of Service: Jul 05, 2017. Subjective Patient is dramatically improved, I spoke to his brother this morning regarding his lung disease his orthostasis is almost resolved is tolerating oral medications Problem List Medical Problems: (1) Elevated troponin Status: Acute (2) Head trauma Status: Acute (3) Influenza A Status: Acute (4) Syncope Status: Acute (5) Weakness Status: Acute Review of Systems Constitutional: No fever, No chills, No weakness Respiratory: + cough, + sputum, No shortness of breath, No dyspnea on exertion Cardiac: No chest pain, No edema Musculoskeletal: No joint pain, No muscle pain, No swelling Male : No dysuria, No urinary frequency Psychiatric: No depression symptoms, No anxiety Objective Vital Signs Date Time Temp Pulse Resp B/P (MAP) Pulse Ox O2 Delivery O2 Flow Rate FiO2 07/05/17 16:35 36.6 75 20 104/65 (78) 92 Room Air 07/05/17 16:14 Nasal Cannula 2.0 07/05/17 14:32 36.4 65 20 122/73 (89) 95 Room Air 07/05/17 13:27 36.6 64 18 94 2.0 07/05/17 12:41 36.6 64 116/69 (85) 94 07/05/17 12:00 Nasal Cannula 2.0 07/05/17 08:20 36.8 92 18 113/76 (88) 98 95 139/78 (98) 98 156/96 (116) 07/05/17 08:00 Nasal Cannula 2.0 07/05/17 07:22 77 18 99 Nasal Cannula 2.0 07/05/17 04:00 Nasal Cannula 2.0 07/05/17 03:35 36.6 77 22 138/87 (104) 94 2.0 07/04/17 23:59 Nasal Cannula 2.0 07/04/17 23:38 36.8 80 20 134/78 (96) 98 Nasal Cannula 2.0 77 133/81 (98) 78 115/76 (89) 07/04/17 20:00 Nasal Cannula 2.0 07/04/17 19:21 90 18 98 Nasal Cannula 2.0 07/04/17 19:20 36.6 94 18 136/83 (100) 97 Nasal Cannula 3.0 Physical Exam General Appearance: WD/WN, + mild distress Eyes: normal inspection, sclerae normal Neck: supple, no JVD Respiratory/Chest: chest non-tender, + decreased breath sounds, + rales (have baseline rales with history of pulmonary fibrosis) Cardiovascular: regular rate, rhythm, no murmur Abdomen: normal bowel sounds, non tender, soft Extremities: no pedal edema, no calf tenderness Laboratory Results Last 24 Hours Test 07/05/17 06:03 White Blood Count 5.25 K/uL Red Blood Count 4.94 M/uL Hemoglobin 14.0 g/dL Hematocrit 40.4 % Mean Corpuscular Volume 81.8 fL Mean Corpuscular Hemoglobin 28.3 pg Mean Corpuscular Hemoglobin Concent 34.7 g/dl Platelet Count 122 K/uL Mean Platelet Volume 9.5 fL Neutrophils (%) (Auto) 75.3 % Lymphocytes (%) (Auto) 11.0 % Monocytes (%) (Auto) 13.3 % Eosinophils (%) (Auto) 0.0 % Basophils (%) (Auto) 0.2 % Neutrophils # (Auto) 3.95 K/uL Lymphocytes # (Auto) 0.58 K/uL Monocytes # (Auto) 0.70 K/uL Eosinophils # (Auto) 0.00 K/uL Basophils # (Auto) 0.01 K/uL RDW Standard Deviation 43.1 fL RDW Coefficient of Variation 14.4 % Immature Granulocyte % (Auto) 0.2 % Immature Granulocyte # (Auto) 0.01 K/uL Prothrombin Time 40.3 SECONDS Prothromb Time International Ratio 3.9 Activated Partial Thromboplast Time 39.9 SECONDS Partial Thromboplastin Ratio 1.5 Sodium Level 136 mmol/L Potassium Level 4.0 mmol/L Chloride Level 106 mmol/L Carbon Dioxide Level 24 mmol/L Anion Gap 6.0 mmol/L Blood Urea Nitrogen 19 mg/dl Creatinine 0.99 mg/dl Est Creatinine Clear Calc Drug Dose 78.4 ml/min Estimated GFR () 89.1 Estimated GFR (Non- 76.8 BUN/Creatinine Ratio 19.5 Random Glucose 102 mg/dl Calcium Level 7.9 mg/dl Magnesium Level 1.9 mg/dl Total Bilirubin 0.4 mg/dl Direct Bilirubin 0.1 mg/dl Aspartate Amino Transf (AST/SGOT) 74 U/L Alanine Aminotransferase (ALT/SGPT) 48 U/L Alkaline Phosphatase 70 U/L Total Protein 6.5 gm/dl Albumin 2.6 gm/dl Assessment and Plan 71 M Acute on chronic respiratory failure with hypoxia--infgluenza A and possible type 2 [place] Acute bronchitis exacerbating chronic respiratory failure we'll streamline his medicines suggest Tamiflu Tamiflu Acute on Chronic respiratory failure improving will take her medicine the prednisone Guaifenesin, Duonebs every 4 hours while awake and every 2 hours when necessary. Nasal cannula 2 L of oxygen titrating to keep pulse ox greater than or equal to 92%. CAD/hypertension/history of [place]/CHF/atrial fibrillation with controlled rate/ elevated troponin of 0.694--type 2 mi no acute cardiac interventions planned atenolol 50 mg in the morning and 25 mg in the evening, Imdur extended release 60 mg daily, losartan potassium 50 mg daily and warfarin reduced to 4 mg daily. as elevated inr Added aspirin 81 mg daily, Hyperlipidemia--and secondary cardiac risk reduction atorvastatin 40 mg daily. Depression--fluoxetine 20 mg daily PT/Ot feels is safe to return to home soon
[2017-07-06 02:12] VITALS: BP_SYST 142; BP_SYST 148; BP_DIAS 86; BP_DIAS 92; PULSE 90; PULSE 99
[2017-07-06 07:21] VITALS: BP_SYST 154; BP_SYST 156; BP_DIAS 101; BP_DIAS 95; PULSE 103; PULSE 87; TEMP 36.4; O2SAT 90
[2017-07-06 07:22] VITALS: BP 151/101; PULSE 101
[2017-07-06] MEDS: OSELTAMIVIR PHOSPHATE 75 MG CAP PO SCH (07:54)
[2017-07-06] MEDS: FLUOXETINE HCL 20 MG CAP PO SCH (07:54)
[2017-07-06] MEDS: ISOSORBIDE MONONITRATE 60 MG TABCR PO SCH (07:54)
[2017-07-06] MEDS: LOSARTAN POTASSIUM 50 MG TAB PO SCH (07:54)
[2017-07-06] MEDS: ATORVASTATIN 40 MG TAB PO SCH (07:54)
[2017-07-06] MEDS: GUAIFENESIN 600 MG TABCR PO SCH (07:54)
[2017-07-06] MEDS: ASPIRIN 81 MG CHEW PO SCH (07:55)
[2017-07-06 08:04] LABS: BASO % 0.3 %; BASO ABS # 0.02 K/uL (0-0.2); HEMATOCRIT 40.9 % (42-52); HEMOGLOBIN 14.2 g/dL (14.0-18.0); IG# 0.04 K/uL (0.00-0.02); LYMPH % 20.5 %; LYMPH ABS # 1.22 K/uL (1.2-3.4); MEAN CELL VOLUME 82.1 fL (80-100); MEAN CORPUSCULAR HEMOGLOBIN 28.5 pg (25-34); MEAN CORPUSCULAR HGB CONC 34.7 g/dl (32-36); MEAN PLATELET VOLUME 9.9 fL (7.4-10.4); MONO % 11.8 %; NEUT % 66.7 %; NEUT ABS # 3.96 K/uL (1.4-6.5); PLATELET COUNT 129 K/uL (130-400); RED CELL DISTRIBUTION WIDTH CV 14.6 % (11.5-14.5); RED CELL DISTRIBUTION WIDTH SD 43.7 fL (36.4-46.3); WHITE BLOOD COUNT 5.94 K/uL (4.8-10.8)
[2017-07-06 08:19] LABS: PTT PATIENT 41.2 SECONDS (21.0-31.0)
[2017-07-06 08:21] LABS: INR 5.1 (0.9-1.1)
[2017-07-06 08:39] LABS: ALBUMIN 2.7 gm/dl (3.4-5.0); CALCIUM 8.5 mg/dl (8.5-10.1); CREATININE 0.9 mg/dl (0.60-1.40); POTASSIUM 3.7 mmol/L (3.5-5.1)
[2017-07-06] MEDS ORDERED: OXGN ×2 (08:41)
[2017-07-06] MEDS ORDERED: PRED10TA PO ×2 (08:41)
[2017-07-06] MEDS ORDERED: GFNSR600 PO ×2 (08:41)
[2017-07-06] MEDS ORDERED: TMF75 PO ×2 (08:41)
[2017-07-06 08:42] LABS: TOTAL PROTEIN 6.7 gm/dl (6.4-8.2)
[2017-07-06] MEDS ORDERED: PHYTONADIONE 1MG/5ML SUSP PO ONE (08:45)
--- NOTE | 2017-07-06 08:48 | Discharge Instructions ---
Discharge Instructions Date of Service Jul 06, 2017. Admission Reason for Admission: Acute On Chronic Resp Failure W/ Hypoxia, Syncope Discharge Discharge Diagnosis / Problem: influenza Discharge Goals Goal(s): Diagnostic testing, Therapeutic intervention Activity Recommendations Activity Limitations: as noted below Acute influenza A. coumadin inr elevation secondary to medication interaction Acute bronchitis exacerbating chronic respiratory failure 5 additional doses of Tamiflu Acute on Chronic respiratory failure home oxygen, tapering prednison and Guaifenesin CAD/hypertension/history of AL/CHF/atrial fibrillation with controlled rate/ illness did strain heart with blood enzyme elevated but not consitent with heart attack atenolol 50 mg in the morning and 25 mg in the evening, Imdur extended release 60 mg daily, losartan potassium 50 mg daily Blood thinner, your blood work for coumadin was elevated on the day of discharge , do not take you warfarin until you have an outpt blood test and instructions from your doctor to re start this medication, the elevation of your blood thinner while inpatient was likely due to interaction of Coumadin and antibiotics given Hyperlipidemia--and secondary cardiac risk reduction atorvastatin 40 mg daily. Depression--fluoxetine 20 mg daily Current Hospital Diet Patient's current hospital diet: AHA Diet (Heart Healthy) Discharge Diet Recommended Diet: Regular Diet Pending Studies Studies pending at discharge: no Medical Emergencies . Who to Call and When: Medical Emergencies: If at any time you feel your situation is an emergency, please call 911 immediately. . Non-Emergent Contact Non-Emergency issues call your: Primary Care Provider Call Non-Emergent contact if: temperature is above 101, your pain is unusual for you, wound has increased pain . . "Provider Documentation" section prepared by Randy Vyas. . VTE Core Measure Inpt VTE Proph given/why not?: Warfarin (Coumadin)
[2017-07-06] MEDS ORDERED: PHYTONADIONE PED INJ 1 MG, ORA-SWEET SYRUP 2.25 ML, ORA-PLUS SUSP. VEHICLE 2.25 ML, BAR... PO ONE ×3 (09:00)
[2017-07-06 13:04] LABS: INR 4.8 (0.9-1.1)
[2017-07-06 14:08] VITALS: BP 151/101; PULSE 101; TEMP 36.4; O2SAT 90
[2017-07-06] MEDS ORDERED: WARFARIN SOD 4 MG TAB PO SCH (16:00)
--- NOTE | 2017-07-07 07:32 | Discharge Summary ---
Discharge Summary Date of Service Jul 07, 2017. Discharge Summary Admission Date: Jul 03, 2017 at 23:36 Discharge Date: Jul 06, 2017 Discharge Disposition: Home with services Principal Diagnosis: acute influenza Immunizations: Have You Had Influenza Vaccine: Yes Influenza Vaccine Date: Mar 01, 2005 History of Tetanus Vaccine?: No History of Pneumococcal: Unknown History of Hepatitis B Vaccine: No Medication Reconciliation New Medications: Home O2 Therapy (Oxygen) Gas 2 LITERS NA PRN, #1 UNIT Prednisone (Prednisone) 10 Mg Tab 10 MG PO UD, #42 TAB 4 a day x 4 days then 3 a day x 4 days then 2 a day x 4 days then 1 a day Guaifenesin Ext Rel (Mucinex Ext Rel) 600 Mg Tabcr 600 MG PO Q12, #20 DOSE Oseltamivir Phosphate (Tamiflu) 75 Mg Cap 75 MG PO BID, #5 CAP Continued Medications: Atenolol (Atenolol) 25 Mg Tab 50 MG PO QAM Atenolol (Tenormin) 25 Mg Tab 25 MG PO QPM, TAB Atorvastatin (Lipitor) 40 Mg Tab 40 MG PO DAILY Fluoxetine HCl (Fluoxetine HCl) 20 Mg Cap 20 MG PO DAILY Isosorbide Mononitrate Ext Rel (Imdur Ext Rel) 60 Mg Ertab 60 MG PO DAILY, TAB Losartan Potassium (Losartan Potassium) 50 Mg Tab 50 MG PO DAILY Warfarin Sod (Jantoven) 5 Mg Tab 5 MG PO DIRECTED, TAB do not restart until you have outpt INR and instructions from your doctor Discharge Exam Review of Systems: Constitutional: No fever, No chills Respiratory: + cough, + shortness of breath, + dyspnea on exertion, No sputum Cardiovascular: No chest pain, No PND Abdomen: No pain, No nausea Physical Exam: General Appearance: WD/WN, no apparent distress Neck: supple, no JVD Respiratory/Chest: chest non-tender, no respiratory distress, + decreased breath sounds Cardiovascular: regular rate, rhythm, no murmur Hospital Course 71 M Acute on chronic respiratory failure with hypoxia--infgluenza A and possible type 2 [place] Acute bronchitis exacerbating chronic respiratory failure we'll complete an outpatient course of Tamiflu Acute on Chronic respiratory failure tapering prednisone Guaifenesin, Patient typically wears Nasal cannula 2 L of oxygen titrating to keep pulse ox greater than or equal to 92%. CAD/hypertension/history of [place]/CHF/atrial fibrillation with controlled rate/ elevated troponin of 0.694--type 2 mi no acute cardiac interventions planned atenolol 50 mg in the morning and 25 mg in the evening, Imdur extended release 60 mg daily, losartan potassium 50 mg daily and warfarin reduced to 4 mg daily. as elevated inr Added aspirin 81 mg daily, Hyperlipidemia--and secondary cardiac risk reduction atorvastatin 40 mg daily. Depression--fluoxetine 20 mg daily PT/Ot feels is safe to return to home Total Time Spent: Greater than 30 minutes This includes examination of the patient, discharge planning, medication reconciliation, and communication with other providers. Discharge Instructions Please refer to the electronic Patient Visit Report (Discharge Instructions) for additional information.
[2017-07-07] MEDS ORDERED: WARFARIN SOD 4 MG TAB PO SCH (16:00)
== END 2017-07-06 15:56 | disposition home health service (06) | DRG 280 ==
LOC: EDBD 21:20 → C.EDA 21:23 → C.2E 23:36 → ENRESERV 23:52 → EDBEDREQ 07-04 00:35 → ENRESERV 07-05 12:59 → C.MS2W 07-05 14:21
PROVIDERS: ADMIT Hospitalist; ATTEND Hospitalist
DX: I21.A1 Myocardial infarction type 2 (principal); J96.21 Acute and chronic respiratory failure with hypoxia; R55 Syncope and collapse; Z87.891 Personal history of nicotine dependence; Z79.01 Long term (current) use of anticoagulants; J10.1 Influenza due to other identified influenza virus with other respiratory manifestations; I25.10 Atherosclerotic heart disease of native coronary artery without angina pectoris; I10 Essential (primary) hypertension; I25.2 Old myocardial infarction; J20.9 Acute bronchitis, unspecified; E78.5 Hyperlipidemia, unspecified; I50.9 Heart failure, unspecified

== ENCOUNTER 2017-07-07 11:13 | Emergency (ER) | payer OTHER, BC ==
[~2017-07-07] VITALS: Ht 185.4 cm; Wt 79.4 kg
[~2017-07-07 11:13] MED LIST changes: +ATEN-173 PO; +CZR50 PO; +FLUO20CA36 PO; +GFNSR600 PO; +ISOS60TA25 PO; +LPT40 PO; +OXGN; +PRED10TA PO; +TMF75 PO; +TNR25 PO
[2017-07-07 11:25] VITALS: TEMP 36.6; Ht 185.4 cm; Wt 79.4 kg
[2017-07-07 11:32] VITALS: O2SAT 94
[2017-07-07 11:55] LABS: HEMATOCRIT 40.5 % (42-52); HEMOGLOBIN 14.4 g/dL (14.0-18.0); MEAN CELL VOLUME 80.4 fL (80-100); MEAN CORPUSCULAR HEMOGLOBIN 28.6 pg (25-34); MEAN CORPUSCULAR HGB CONC 35.6 g/dl (32-36); MEAN PLATELET VOLUME 9.7 fL (7.4-10.4); PLATELET COUNT 139 K/uL (130-400); RED CELL DISTRIBUTION WIDTH CV 14.6 % (11.5-14.5); RED CELL DISTRIBUTION WIDTH SD 42.3 fL (36.4-46.3); WHITE BLOOD COUNT 9.22 K/uL (4.8-10.8)
[2017-07-07 12:06] LABS: INR 2.2 (0.9-1.1); PTT PATIENT 34.8 SECONDS (21.0-31.0)
[2017-07-07 12:13] LABS: CREATININE 0.94 mg/dl (0.60-1.40); POTASSIUM 3.6 mmol/L (3.5-5.1)
[2017-07-07 12:16] LABS: TOTAL PROTEIN 7.1 gm/dl (6.4-8.2)
--- NOTE | 2017-07-07 12:54 | DIAGNOSTIC IMAGING REPORT ---
CHEST ONE VIEW PORTABLE CLINICAL HISTORY: 71 years-old Male presenting with confusion, cough, recent flu. TECHNIQUE: Portable upright AP view of the chest was obtained. COMPARISON: 07/03/2017. FINDINGS: Median sternotomy wires and mediastinal surgical clips unchanged. Atherosclerosis of the aortic arch. Cardiac silhouette moderately enlarged, unchanged. Possible underlying mitral annular calcification. Prominent pulmonary lung markings with vague perihilar opacities and bronchial wall thickening overall stable from prior exam. No new focal opacity. No large pleural effusion or pneumothorax. Osseous structures normal. Upper abdomen normal. IMPRESSION: 1. Persistent prominence of lung markings possibly due to mild congestive change. No orin pulmonary edema. No new focal opacity. Relative density in the left retrocardiac region likely a result of cardiomegaly. Electronically signed by: Gael Kuhn M.D. 07/07/2017 12:52 PM Dictated Date/Time: 07/07/2017 12:51 PM
[2017-07-07 13:11] LABS: BASO % 0.5 %; BASO ABS # 0.05 K/uL (0-0.2); EOS % 0.2 %; EOS ABS # 0.02 K/uL (0-0.5); IG# 0.08 K/uL (0.00-0.02); LYMPH ABS # 2.21 K/uL (1.2-3.4); MONO % 9.7 %; MONO ABS # 0.89 K/uL (0.11-0.59); NEUT % 64.7 %; NEUT ABS # 5.97 K/uL (1.4-6.5)
[2017-07-07 14:42] VITALS: BP 157/83; PULSE 85; O2SAT 92
--- NOTE | 2017-07-07 22:12 | EMERGENCY ROOM VISIT NOTE ---
History Report prepared by Sergio: Hamilton Henderson Under the Supervision of: Dr. Vasyl Aldana M.D. First contact with patient: 12:16 Chief Complaint: OTHER COMPLAINT Stated Complaint: CONFUSION/AMS History of Present Illness The patient is a 71 year old male who presents to the Emergency Room with complaints of constant confusion that began today. Per the patient's report, the patient was recently treated for bronchitis and influenza here in the ED. He was discharged home yesterday with medication. Homehealth came to visit him today and found his table and medications to be out of order. They reported that the patient seemed confused, which caused them to take him to the ED. The patient states that he has been forgetful recently, including forgetting how to put his nasal cannula on. He reports that he lives by himself, but states that his brother has visited him since his discharge from the hospital. The patient states his cough has still been persistent. The patient denies LOC, headache, fevers, chills, diaphoresis, visual changes, neck pain, chest pain, breathing difficulties, nausea, vomiting, abdominal pain, back pain, lower extremity swelling or pain, melena, hematochezia, urinary symptoms, numbness, weakness, lymphadenopathy, rash, or other complaints. Source of History: patient, other (report) Onset: today Position: other (global) Quality: other (global) Timing: constant Associated Symptoms: + cough Review of Systems See HPI for pertinent positives and negatives. A total of ten systems were reviewed and were otherwise negative. Past Medical & Surgical Medical Problems: (1) Acute on chronic respiratory failure with hypoxia (2) Congestive heart failure (3) Myocardial infarct (4) Syncope and collapse Family History GI malignancy Social History Smoking Status: Former Smoker Drug Use: none Housing Status: lives alone Current/Historical Medications Scheduled Atenolol (Atenolol), 50 MG PO QAM Atenolol (Tenormin), 25 MG PO QPM Atorvastatin (Lipitor), 40 MG PO DAILY Fluoxetine HCl (Fluoxetine HCl), 20 MG PO DAILY Guaifenesin Ext Rel (Mucinex Ext Rel), 600 MG PO Q12 Home O2 Therapy (Oxygen), 2 LITERS NA PRN Isosorbide Mononitrate Ext Rel (Imdur Ext Rel), 60 MG PO DAILY Losartan Potassium (Losartan Potassium), 50 MG PO DAILY Oseltamivir Phosphate (Tamiflu), 75 MG PO BID Prednisone (Prednisone), 10 MG PO UD Warfarin Sod (Jantoven), 5 MG PO DIRECTED Allergies Coded Allergies: No Known Allergies (Verified , 06/13/15) Physical Exam Vital Signs Date Time Temp Pulse Resp B/P (MAP) Pulse Ox O2 Delivery O2 Flow Rate FiO2 07/07/17 14:42 85 18 157/83 92 07/07/17 12:46 73 16 130/76 95 Room Air 07/07/17 12:11 82 07/07/17 11:32 94 Room Air 07/07/17 11:25 36.6 62 21 148/89 94 Room Air Physical Exam GENERAL: Awake, alert, well-appearing, in no distress HENT: Normocephalic, atraumatic. Oropharynx unremarkable. EYES: Normal conjunctiva. Sclera non-icteric. NECK: Supple. No nuchal rigidity. FROM. No masses. RESPIRATORY: Heavy cough present. Diminished breath sounds in the bases, but lungs were clear otherwise. No wheezes. CARDIAC: Normal rate. Normal rhythm. No murmurs. No rubs. Extremities warm and well perfused. Pulses equal. No JVD. GI: Soft, non-distended. No tenderness to palpation. No rebound or guarding. No masses. RECTAL: Deferred. MUSCULOSKELETAL: Atraumatic. Chest examination reveals no tenderness. The back is symmetrical on inspection without obvious abnormality. There is no CVA tenderness to palpation. No joint edema. LOWER EXTREMITIES: Calves are equal size bilaterally and non-tender. No edema. Chronic venous discoloration. NEURO: Normal sensorium. GREEN x4. No sensory or motor deficits noted. SKIN: No rash or jaundice noted. Medical Decision & Procedures ER Provider Diagnostic Interpretation: X-ray: Per my interpretation, radiologist review. CHEST ONE VIEW PORTABLE CLINICAL HISTORY: 71 years-old Male presenting with confusion, cough, recent flu. TECHNIQUE: Portable upright AP view of the chest was obtained. COMPARISON: 07/03/2017. FINDINGS: Median sternotomy wires and mediastinal surgical clips unchanged. Atherosclerosis of the aortic arch. Cardiac silhouette moderately enlarged, unchanged. Possible underlying mitral annular calcification. Prominent pulmonary lung markings with vague perihilar opacities and bronchial wall thickening overall stable from prior exam. No new focal opacity. No large pleural effusion or pneumothorax. Osseous structures normal. Upper abdomen normal. IMPRESSION: 1. Persistent prominence of lung markings possibly due to mild congestive change. No orin pulmonary edema. No new focal opacity. Relative density in the left retrocardiac region likely a result of cardiomegaly. Electronically signed by: Gael Kuhn M.D. 07/07/2017 12:52 PM Dictated Date/Time: 07/07/2017 12:51 PM Laboratory Results 07/07/17 11:25 Red Blood Count 5.04, Mean Corpuscular Volume 80.4, Mean Corpuscular Hemoglobin 28.6, Mean Corpuscular Hemoglobin Concent 35.6, Mean Platelet Volume 9.7, Neutrophils (%) (Auto) 64.7, Lymphocytes (%) (Auto) 24.0, Monocytes (%) (Auto) 9.7, Eosinophils (%) (Auto) 0.2, Basophils (%) (Auto) 0.5, Neutrophils # (Auto) 5.97, Lymphocytes # (Auto) 2.21, Monocytes # (Auto) 0.89, Eosinophils # (Auto) 0.02, Basophils # (Auto) 0.05 07/07/17 11:25 Test 07/07/17 11:25 07/07/17 13:09 White Blood Count 9.22 K/uL (4.8-10.8) Red Blood Count 5.04 M/uL (4.7-6.1) Hemoglobin 14.4 g/dL (14.0-18.0) Hematocrit 40.5 % (42-52) Mean Corpuscular Volume 80.4 fL (80-100) Mean Corpuscular Hemoglobin 28.6 pg (25-34) Mean Corpuscular Hemoglobin Concent 35.6 g/dl (32-36) Platelet Count 139 K/uL (130-400) Mean Platelet Volume 9.7 fL (7.4-10.4) Neutrophils (%) (Auto) 64.7 % Lymphocytes (%) (Auto) 24.0 % Monocytes (%) (Auto) 9.7 % Eosinophils (%) (Auto) 0.2 % Basophils (%) (Auto) 0.5 % Neutrophils # (Auto) 5.97 K/uL (1.4-6.5) Lymphocytes # (Auto) 2.21 K/uL (1.2-3.4) Monocytes # (Auto) 0.89 K/uL (0.11-0.59) Eosinophils # (Auto) 0.02 K/uL (0-0.5) Basophils # (Auto) 0.05 K/uL (0-0.2) RDW Standard Deviation 42.3 fL (36.4-46.3) RDW Coefficient of Variation 14.6 % (11.5-14.5) Immature Granulocyte % (Auto) 0.9 % Immature Granulocyte # (Auto) 0.08 K/uL (0.00-0.02) Poikilocytosis PRESENT Prothrombin Time 23.2 SECONDS (9.0-12.0) Prothromb Time International Ratio 2.2 (0.9-1.1) Activated Partial Thromboplast Time 34.8 SECONDS (21.0-31.0) Partial Thromboplastin Ratio 1.3 Anion Gap 10.0 mmol/L (3-11) Est Creatinine Clear Calc Drug Dose 82.1 ml/min Estimated GFR () 94.8 Estimated GFR (Non- 81.8 BUN/Creatinine Ratio 17.4 (10-20) Calcium Level 9.0 mg/dl (8.5-10.1) Total Bilirubin 0.9 mg/dl (0.2-1) Aspartate Amino Transf (AST/SGOT) 58 U/L (15-37) Alanine Aminotransferase (ALT/SGPT) 60 U/L (12-78) Alkaline Phosphatase 68 U/L (45-117) Total Protein 7.1 gm/dl (6.4-8.2) Albumin 3.0 gm/dl (3.4-5.0) Globulin 4.1 gm/dl (2.5-4.0) Albumin/Globulin Ratio 0.7 (0.9-2) Venous Blood pH 7.47 (7.36-7.41) Venous Blood Partial Pressure CO2 36 mmHg (38.0-50.0) Venous Blood Partial Pressure O2 39 mmHg Venous Blood HCO3 26 mmol/L Venous Blood Oxygen Saturation 76.9 % Venous Blood Base Excess 2.2 mEq/L Troponin I 0.079 ng/ml (0-0.045) Laboratory results reviewed by me ECG Per My Interpretation Indication: altered mental status Rate (beats per minute): 60 Rhythm: atrial fibrillation Findings: PVC, RBBB, no acute ischemic change Comparison ECG Date: 07/05/17 Change: no significant change ED Course 1221: The patient was evaluated in room C03. A complete history and physical exam was performed. 1336: I discussed the patients case with Dr. Gomez, [facility] Cardiology. He understands the patients condition and agrees to further evaluate the patient. The patient will be further evaluated. 1426: Dr. Gomez informed me that the patient is ready for discharge. Medical Decision Triage Nursing notes reviewed. The patient's presentation and history were concerning for possible confusion and recent hospitalization. Etiologies such as metabolic, infection, hypo/hyperglycemia, electrolyte abnormalities, cardiac sources, intracerebral event, toxicologic, neurologic, as well as others were entertained. The patient was evaluated. He was alert and oriented. He had no significant complaints and felt like he was getting better. Blood work was obtained. This was unremarkable. He has slight elevation of his troponin but this was much improved from his hospitalization. The patient had an unremarkable ECG and x- ray as far as acute findings. The patient desired to be discharged home. Given his recent discharge from the hospital I did discuss the case with Dr. Vyas. He stopped by the emergency department and checked on the patient. He felt that the patient was improving and was at his baseline. The patient's family was consulted and his brother will be present to meet him at his place. Home nursing will see the patient tomorrow. The patient was encouraged for close outpatient follow-up. If he has any issues he was encouraged to come back to their department immediately for reevaluation. By the evaluation outlined above other emergent etiologies such as those listed in the differential, as well as others, were deemed relatively unlikely. The patient was educated about the findings as listed above. All questions were answered and the patient was pleased with the treatment. Return instructions were outlined and the patient was discharged in stable condition. The patient was referred to his PCP for follow-up for a recheck of the current condition. Medication Reconcilliation Current Medication List: was personally reviewed by me Blood Pressure Screening Patient's blood pressure: Elevated blood pressure Blood pressure disposition: Referred to PCP Consults Time Called: 1336 Consulting Physician: Dr. Gomez, [facility] Cardiology Returned Call: 1336 I discussed the patients case with Dr. Gomez [facility] Cardiology. He understands the patients condition and agrees to further evaluate the patient. The patient will be further evaluated. Impression Primary Impression: Cough Additional Impression: Confusion Scribe Attestation The scribe's documentation has been prepared under my direction and personally reviewed by me in its entirety. I confirm that the note above accurately reflects all work, treatment, procedures, and medical decision making performed by me. Departure Information Dispostion Home / Self-Care Referrals Gael Lee M.D. (PCP) Forms HOME CARE DOCUMENTATION FORM, IMPORTANT VISIT INFORMATION, WORK / SCHOOL INSTRUCTIONS Patient Instructions My [facility] Additional Instructions Follow-up with your primary physician next week. Continue current medications and care that was outlined from your recent discharge yesterday. Continue home health as scheduled. Return to the ER for headache, passing out, difficulty breathing, fevers, chest pain, abdominal pain, vomiting, numbness, tingling, worsening of your condition , or as needed. Problem Qualifiers
== END 2017-07-07 14:44 | disposition home or self-care (01) ==
LOC: EDBD 11:13 → C.EDC 11:15
DX: R05 Cough (principal); R41.0 Disorientation, unspecified; J11.1 Influenza due to unidentified influenza virus with other respiratory manifestations; J96.11 Chronic respiratory failure with hypoxia; I49.3 Ventricular premature depolarization; I45.10 Unspecified right bundle-branch block; I50.9 Heart failure, unspecified; I25.2 Old myocardial infarction; Z87.891 Personal history of nicotine dependence; Z99.81 Dependence on supplemental oxygen; Z79.01 Long term (current) use of anticoagulants; Z80.0 Family history of malignant neoplasm of digestive organs

== ENCOUNTER 2017-09-16 14:32 | Emergency (ER) | payer OTHER, BC ==
[~2017-09-16] VITALS: Ht 180.3 cm; Wt 88.0 kg
[~2017-09-16 14:32] MED LIST changes: -ASPI81TA82 PO; -ATEN50TA8 PO; -ATOR-24 PO; -CHOL100010 PO; -CLR10 PO; -ERGO1CAP35 PO; -FLUO20CA35 PO; -FOLI1TAB8 PO; -INDO-22 PO; -NSP500 PO; -OMEG10007 PO
[2017-09-16 14:37] VITALS: TEMP 37.6
[2017-09-16] MEDS ORDERED: ALBUT/IPRATROP 3MG/0.5MG NEB 3 ML VIAL INH STA (14:47)
[2017-09-16 14:50] VITALS: O2SAT 100
[2017-09-16] MEDS ORDERED: SODIUM CHLORIDE 0.9% 1000ML 1,000 ML IV STA (15:07)
[2017-09-16 15:12] LABS: BASO % 0.2 %; BASO ABS # 0.03 K/uL (0-0.2); EOS % 2.1 %; EOS ABS # 0.28 K/uL (0-0.5); HEMATOCRIT 41.2 % (42-52); HEMOGLOBIN 13.8 g/dL (14.0-18.0); IG# 0.08 K/uL (0.00-0.02); LYMPH % 7.1 %; LYMPH ABS # 0.94 K/uL (1.2-3.4); MEAN CELL VOLUME 86.4 fL (80-100); MEAN CORPUSCULAR HEMOGLOBIN 28.9 pg (25-34); MEAN CORPUSCULAR HGB CONC 33.5 g/dl (32-36); MEAN PLATELET VOLUME 9.9 fL (7.4-10.4); MONO ABS # 1.06 K/uL (0.11-0.59); PLATELET COUNT 147 K/uL (130-400); RED CELL DISTRIBUTION WIDTH CV 15.2 % (11.5-14.5); RED CELL DISTRIBUTION WIDTH SD 48.5 fL (36.4-46.3); WHITE BLOOD COUNT 13.19 K/uL (4.8-10.8)
--- NOTE | 2017-09-16 15:14 | DIAGNOSTIC IMAGING REPORT ---
CHEST ONE VIEW PORTABLE CLINICAL HISTORY: Sepsis dyspnea COMPARISON STUDY: 07/07/2017 FINDINGS: Moderate increase in cardiac size. Prior median sternotomy. Increased pulmonary vasculature. IMPRESSION: Congestive heart failure The above report was generated using voice recognition software. It may contain grammatical, syntax or spelling errors. Electronically signed by: Abrahan Ahuja M.D. 09/16/2017 3:12 PM Dictated Date/Time: 09/16/2017 3:10 PM
[2017-09-16 15:31] VITALS: Ht 180.3 cm; Wt 88.0 kg
[2017-09-16 15:50] LABS: ALKALINE PHOSPHATASE 78 U/L (45-117); ALT/SGPT 41 U/L (12-78); BLOOD UREA NITROGEN 19 mg/dl (7-18); CALCIUM 8.6 mg/dl (8.5-10.1); CARBON DIOXIDE 26 mmol/L (21-32); CREATININE 1.03 mg/dl (0.60-1.40); GLUCOSE 108 mg/dl (70-99); LIPASE 297 U/L (73-393); PHOSPHORUS 1.8 mg/dl (2.5-4.9); SODIUM 135 mmol/L (136-145); TOTAL PROTEIN 7.5 gm/dl (6.4-8.2)
[2017-09-16] MEDS ORDERED: CMD/25 PO (16:02)
[2017-09-16] MEDS ORDERED: LEVAQUIN 750MG / 150ML D5W IV STA (16:13)
[2017-09-16 16:16] LABS: INFLUENZA A PCR Neg for Influ A (NEG); INFLUENZA B PCR Neg for Influ B (NEG)
[2017-09-16 16:41] LABS: INR 2.4 (0.9-1.1); PTT PATIENT 37.1 SECONDS (21.0-31.0)
[2017-09-16 17:02] LABS: POTASSIUM 4.2 mmol/L (3.5-5.1)
--- NOTE | 2017-09-16 17:04 | EMERGENCY ROOM VISIT NOTE ---
History Report prepared by Sergio: Jim Walter Under the Supervision of: Dr. Stephan Carpio D.O. First contact with patient: 14:43 Chief Complaint: SHORTNESS OF BREATH Stated Complaint: LOW 02 History of Present Illness The patient is a 72 year old male who presents to the Emergency Room with complaints of constant shortness of breath beginning this week. He also complains of a cough. He reports having a few a few days ago. History obtained per family. The patient has a history of brain damage, IPF and A-fib. He is on Coumadin. The patient was discharged from the [facility] about one week ago. He was there for three days due to difficulty breathing. HPI limited secondary to mental state. Source of History: patient, family History Limited By: other (Mental state) Onset: This week Quality: other (shortness of breath) Timing: constant Associated Symptoms: + cough Review of Systems ROS limited secondary to mental state. Past Medical & Surgical Medical Problems: (1) Acute on chronic respiratory failure with hypoxia (2) Congestive heart failure (3) Myocardial infarct (4) Syncope and collapse Family History GI malignancy Social History Smoking Status: Never Smoker Drug Use: none Housing Status: lives alone Current/Historical Medications Scheduled Atenolol (Atenolol), 50 MG PO QAM Atenolol (Tenormin), 25 MG PO QPM Atorvastatin (Lipitor), 40 MG PO DAILY Fluoxetine HCl (Fluoxetine HCl), 20 MG PO DAILY Guaifenesin Ext Rel (Mucinex Ext Rel), 600 MG PO Q12 Home O2 Therapy (Oxygen), 2 LITERS NA PRN Isosorbide Mononitrate Ext Rel (Imdur Ext Rel), 60 MG PO DAILY Losartan Potassium (Losartan Potassium), 50 MG PO DAILY Oseltamivir Phosphate (Tamiflu), 75 MG PO BID Warfarin Sod (Coumadin), 2.5 MG PO DAILY Allergies Coded Allergies: No Known Allergies (Verified , 09/16/17) Physical Exam Vital Signs Date Time Temp Pulse Resp B/P (MAP) Pulse Ox O2 Delivery O2 Flow Rate FiO2 09/16/17 17:36 80 18 106/67 94 Nasal Cannula 6.0 09/16/17 15:35 94 26 131/77 98 Non-Rebreather 10.0 09/16/17 15:26 81 Nasal Cannula 4.0 09/16/17 15:10 85 09/16/17 14:50 100 Non-Rebreather 13.0 09/16/17 14:37 37.6 90 24 130/78 85 Nasal Cannula 5.0 Physical Exam GENERAL: Patient is awake, alert, and somewhat anxious appearing. EYES: The conjunctivae are clear. The pupils are round and reactive. EARS, NOSE, MOUTH AND THROAT: The nose is without any evidence of any deformity. Mucous membranes are moist tongue is midline NECK: The neck is nontender and supple. RESPIRATORY: Diminished throughout with rales at both bases. Tachypnea noted. CARDIOVASCULAR: Irregular rhythm noted to auscultation. No definite murmur appreciated. GASTROINTESTINAL: The abdomen is soft. Bowel sounds are present in all quadrants. Abdomen is nontender MUSCULOSKELETAL/EXTREMITIES: There is no evidence of gross deformity full range of motion is noted in the hips and shoulders SKIN: There is no obvious evidence of any rash. There are no petechiae, pallor or cyanosis noted. NEUROLOGIC: At baseline according to friend. Medical Decision & Procedures ER Provider Diagnostic Interpretation: Radiology results as stated below per my review and radiologist interpretation: CHEST ONE VIEW PORTABLE FINDINGS: Moderate increase in cardiac size. Prior median sternotomy. Increased pulmonary vasculature. IMPRESSION: Congestive heart failure The above report was generated using voice recognition software. It may contain grammatical, syntax or spelling errors. Electronically signed by: Abrahan Ahuja M.D. 09/16/2017 3:12 PM Laboratory Results 09/16/17 14:55 Red Blood Count 4.77, Mean Corpuscular Volume 86.4, Mean Corpuscular Hemoglobin 28.9, Mean Corpuscular Hemoglobin Concent 33.5, Mean Platelet Volume 9.9, Neutrophils (%) (Auto) 82.0, Lymphocytes (%) (Auto) 7.1, Monocytes (%) (Auto) 8.0, Eosinophils (%) (Auto) 2.1, Basophils (%) (Auto) 0.2, Neutrophils # (Auto) 10.80, Lymphocytes # (Auto) 0.94, Monocytes # (Auto) 1.06, Eosinophils # (Auto) 0.28, Basophils # (Auto) 0.03 09/16/17 14:55 09/16/17 16:24 Test 09/16/17 14:46 09/16/17 14:55 09/16/17 15:04 09/16/17 15:05 Creatine Kinase MB Ratio (0-3.0) White Blood Count 13.19 K/uL (4.8-10.8) Red Blood Count 4.77 M/uL (4.7-6.1) Hemoglobin 13.8 g/dL (14.0-18.0) Hematocrit 41.2 % (42-52) Mean Corpuscular Volume 86.4 fL (80-100) Mean Corpuscular Hemoglobin 28.9 pg (25-34) Mean Corpuscular Hemoglobin Concent 33.5 g/dl (32-36) Platelet Count 147 K/uL (130-400) Mean Platelet Volume 9.9 fL (7.4-10.4) Neutrophils (%) (Auto) 82.0 % Lymphocytes (%) (Auto) 7.1 % Monocytes (%) (Auto) 8.0 % Eosinophils (%) (Auto) 2.1 % Basophils (%) (Auto) 0.2 % Neutrophils # (Auto) 10.80 K/uL (1.4-6.5) Lymphocytes # (Auto) 0.94 K/uL (1.2-3.4) Monocytes # (Auto) 1.06 K/uL (0.11-0.59) Eosinophils # (Auto) 0.28 K/uL (0-0.5) Basophils # (Auto) 0.03 K/uL (0-0.2) RDW Standard Deviation 48.5 fL (36.4-46.3) RDW Coefficient of Variation 15.2 % (11.5-14.5) Immature Granulocyte % (Auto) 0.6 % Immature Granulocyte # (Auto) 0.08 K/uL (0.00-0.02) Erythrocyte Sedimentation Rate 56 mm/hr (0-14) Anion Gap 6.0 mmol/L (3-11) Est Creatinine Clear Calc Drug Dose 70.0 ml/min Estimated GFR () 84.3 Estimated GFR (Non- 72.7 BUN/Creatinine Ratio 18.7 (10-20) Calcium Level 8.6 mg/dl (8.5-10.1) Phosphorus Level 1.8 mg/dl (2.5-4.9) Total Bilirubin 1.3 mg/dl (0.2-1) Alanine Aminotransferase (ALT/SGPT) 41 U/L (12-78) Alkaline Phosphatase 78 U/L (45-117) Creatine Kinase MB 1.0 ng/ml (0.5-3.6) Troponin I < 0.015 ng/ml (0-0.045) C-Reactive Protein 4.89 mg/dl (0-0.29) Pro-B-Type Natriuretic Peptide 1787 pg/ml (0-900) Total Protein 7.5 gm/dl (6.4-8.2) Albumin 3.0 gm/dl (3.4-5.0) Globulin 4.5 gm/dl (2.5-4.0) Albumin/Globulin Ratio 0.7 (0.9-2) Lipase 297 U/L (73-393) Bedside Lactic Acid Venous 3.29 mmol/L (0.90-1.70) Venous Blood pH 7.39 (7.36-7.41) Venous Blood Partial Pressure CO2 44 mmHg (38.0-50.0) Venous Blood Partial Pressure O2 22 mmHg Venous Blood HCO3 26 mmol/L Venous Blood Oxygen Saturation < 60.0 % Venous Blood Base Excess 0.9 mEq/L Test 09/16/17 15:25 09/16/17 16:24 09/16/17 17:28 Influenza Type A (RT-PCR) Neg for Influ A (NEG) Influenza Type B (RT-PCR) Neg for Influ B (NEG) Prothrombin Time 24.7 SECONDS (9.0-12.0) Prothromb Time International Ratio 2.4 (0.9-1.1) Activated Partial Thromboplast Time 37.1 SECONDS (21.0-31.0) Partial Thromboplastin Ratio 1.4 Magnesium Level 1.7 mg/dl (1.8-2.4) Aspartate Amino Transf (AST/SGOT) 37 U/L (15-37) Total Creatine Kinase 45 U/L (39-308) Urine Color YELLOW Urine Appearance CLEAR (CLEAR) Urine pH 5.0 (4.5-7.5) Urine Specific Mason 1.022 (1.000-1.030) Urine Protein 1+ (NEG) Urine Glucose (UA) NEG (NEG) Urine Ketones NEG (NEG) Urine Occult Blood TRACE (NEG) Urine Nitrite NEG (NEG) Urine Bilirubin NEG (NEG) Urine Urobilinogen NEG (NEG) Urine Leukocyte Esterase NEG (NEG) Urine WBC (Auto) 1-5 /hpf (0-5) Urine RBC (Auto) 0-4 /hpf (0-4) Urine Hyaline Casts (Auto) 0 /lpf (0-5) Urine Epithelial Cells (Auto) 0-5 /lpf (0-5) Urine Bacteria (Auto) NEG (NEG) Laboratory results per my review. Medications Administered Medications (Trade) Dose Ordered Sig/Elma Route Start Time Stop Time Status Last Admin Dose Admin Albuterol/ Ipratropium (Duoneb) 3 ml NOW STAT INH 09/16/17 14:47 09/16/17 14:48 DC 09/16/17 15:21 3 ML Sodium Chloride 1,000 ml @ 999 mls/hr Q1H1M STAT IV 09/16/17 15:07 09/16/17 16:07 DC 09/16/17 15:21 999 MLS/HR Levofloxacin (Levaquin / D5W) 750 mg NOW STAT IV 09/16/17 16:13 09/16/17 16:14 DC 09/16/17 16:13 750 MG Methylprednisolone Sodium Succinate (Solu-Medrol IV) 125 mg NOW STAT IV 09/16/17 18:40 09/16/17 18:41 DC 09/16/17 18:47 125 MG ECG Per My Interpretation Indication: SOB/dyspnea Rate (beats per minute): 76 Rhythm: atrial fibrillation Findings: RBBB, other (No PVC. ) Comparison ECG Date: 07/07/2017 ED Course 1444: The patient was evaluated in room A1. A complete history and physical examination were performed. 1447: Ordered DuoNeb 3 mL INH. 1450: The patient was moved to room A11B. 1507: Ordered NSS 1,000 ml @ 999 mls/hr IV. 1613: Ordered Levaquin / D5W 750 mg IV. 1630: Upon reevaluation, the patient is resting comfortably. I discussed results and treatment plan with him. He verbalizes agreement and understanding. I spoke with Dr. Metz of the [facility] Hospitalist. The patient will be evaluated for further management and care. 1755: I updated the patient on his situation. I spoke with Dr. Roy of [facility] Pulmonology. The patient will be transferred to [facility] for further management and care. 1840: Ordered Solu-Medrol 125 mg IV. Medical Decision Differential diagnosis: Etiologies such as infections, reactive airway disease, pneumonia, pneumothorax , COPD, CHF, cardiac ischemia, pulmonary embolism, musculoskeletal, gastrointestinal, as well as others were entertained. Nursing notes reviewed. Additional history is obtained from the patient's family members. The patient is a 72-year-old male with a history of idiopathic pulmonary fibrosis who presented to the emergency department for evaluation of worsening shortness of breath. The patient was treated with DuoNeb as well as IV fluids IV antibiotics and IV steroids. He was reevaluated multiple times. On subsequent reevaluation he was significantly improved. I discussed the patient' s laboratory and radiographic studies with him and his family members. I also discussed this case with the on-call [facility] hospitalist. After discussion with the hospitalist as well as the family members it was felt that the patient may require referral to his primary biscuit maker in [place]. At this time I am unsure if this is the best course of action because the patient will eventually need to be established with a biscuit maker locally but given the family's desire to be transferred to [place] I discussed this case with the covering biscuit maker for his primary biscuit maker. At this time he agreed to accept the patient in transfer for further management and disposition. Transfer paperwork was filled out by myself. Medication Reconcilliation Current Medication List: was personally reviewed by me Blood Pressure Screening Patient's blood pressure: Elevated blood pressure Blood pressure disposition: Elevated BP felt to be situational Consults Time Called: 1628 Consulting Physician: Dr. Metz - [facility] Hospitalist Returned Call: 1632 I discussed the patient's case with Dr. Metz. The patient will be evaluated for further management. Additional Consults: Time Called: 1808 Consulted Physician: Dr. Roy - [facility] Returned Call: 1812 Additional Comments: I discussed the patient's case with Dr. Roy. The patient will be transferred to [facility] by ground. Impression Primary Impression: Pneumonia Additional Impressions: Hypoxia Respiratory failure Scribe Attestation The scribe's documentation has been prepared under my direction and personally reviewed by me in its entirety. I confirm that the note above accurately reflects all work, treatment, procedures, and medical decision making performed by me. Departure Information Dispostion Transfer Acute Care Facility ([facility]) Referrals Gael Lee M.D. (PCP) Patient Instructions My [facility] Problem Qualifiers Primary Impression: Pneumonia Pneumonia type: due to unspecified organism Laterality: unspecified laterality Lung location: unspecified part of lung Qualified Codes: J18.9 - Pneumonia, unspecified organism Additional Impressions: Respiratory failure Chronicity: acute on chronic Respiratory failure complication: hypoxia Qualified Codes: J96.21 - Acute and chronic respiratory failure with hypoxia
--- NOTE | 2017-09-16 18:34 | Medical Consult ---
Consultation Date of Consultation: Sep 16, 2017. Attending Physician: History of Present Illness 72-year-old man with past medical history of influenza pneumonia diagnosed in June 2017. Patient since then has been deteriorating quickly. In July 2017 he was checked and [facility] and was found to have pulmonary fibrosis. Required to be started on oxygen supplement. Initially started in 2 L of oxygen. Since then he has been deteriorated quickly. Currently requiring 4 L of oxygen. 10 days ago was admitted to [facility] for severe shortness of breath. A 2D echo was done over there and he was initially treated for pneumonia but at the end his power of commercial attorney and friend thinks that they thought the underlying reason for his shortness of breath is worsening pulmonary fibrosis.. He was discharged from [facility] a week ago. Today he was supposed to go out with his friend. In the restaurant he was noticed to have severe shortness of breath. He was brought to the ED and found to have oxygen saturation of 81% on 4 L. His patient has brain injury at and also has Asperger's syndrome. His power of commercial attorney is his friend who asked us to transfer to the patient to [facility] in order not to repeat the same experience that he had in [facility]. Giving the complexity of the case and the need for higher level of care I agreed with him that for continued care of care it would be better for him to see his primary bogger operator Dr. Noah Mercado. Discussed that with Dr. Carpio in ED who also agreed with the current plan Past Medical/Surgical History Medical Problems: (1) Elevated troponin Status: Acute (2) Head trauma Status: Acute (3) Hypoxia Status: Acute (4) Influenza A Status: Acute (5) Pneumonia Status: Acute (6) Respiratory failure Status: Acute (7) Syncope Status: Acute (8) Weakness Status: Acute Family History GI malignancy Social History Smoking Status: Never Smoker Drug Use: none Housing Status: lives alone Allergies Coded Allergies: No Known Allergies (Verified , 09/16/17) Review of Systems Review of system is unreliable as patient almost said that he is feeling good and he does not have any problem, as mentioned above patient has Asperger syndrome and has brain trauma on Physical Exam Date Time Temp Pulse Resp B/P (MAP) Pulse Ox O2 Delivery O2 Flow Rate FiO2 09/16/17 17:36 80 18 106/67 94 Nasal Cannula 6.0 09/16/17 15:35 94 26 131/77 98 Non-Rebreather 10.0 09/16/17 15:26 81 Nasal Cannula 4.0 09/16/17 15:10 85 09/16/17 14:50 100 Non-Rebreather 13.0 09/16/17 14:37 37.6 90 24 130/78 85 Nasal Cannula 5.0 Physical examination General morbidly obese and appears to be in severe acute distress HEENT: Atraumatic , normocephalic /no jaundice /no pallor /anicteric /no dry mucous membrane /normal external ear inspection Neck: Supple /no swelling /central trach Heart: S1/S2 normal/regular rate and rhythm/no gallop /no rub /no murmur Respiratory/Chest: Decreased air entry bilaterally, generalized wheezing both lung alexander, scattered rhonchi Abdomen: Soft/nontender/no guarding/no rebound/no organomegaly/no pulsatile mass Musculoskeletal: No swelling/no edema/no tenderness/normal range of motion Neuro exam: Awake alert oriented 3/cranial nerves II through XII appear to be intact/sensation intact/moves all extremities/no abnormal movements Psychiatric evaluation: No depressed mood/normal affect Skin: No rash on exposed skin area/no erythema Extremity: Normal pulse/no pitting edema/no clubbing or cyanosis Endocrine/lymphatic: No obvious lymphadenopathy /no lymphedema Laboratory Results Last 24 Hours Test 09/16/17 14:46 09/16/17 14:55 09/16/17 15:04 09/16/17 15:05 Creatine Kinase MB Ratio White Blood Count 13.19 K/uL Red Blood Count 4.77 M/uL Hemoglobin 13.8 g/dL Hematocrit 41.2 % Mean Corpuscular Volume 86.4 fL Mean Corpuscular Hemoglobin 28.9 pg Mean Corpuscular Hemoglobin Concent 33.5 g/dl Platelet Count 147 K/uL Mean Platelet Volume 9.9 fL Neutrophils (%) (Auto) 82.0 % Lymphocytes (%) (Auto) 7.1 % Monocytes (%) (Auto) 8.0 % Eosinophils (%) (Auto) 2.1 % Basophils (%) (Auto) 0.2 % Neutrophils # (Auto) 10.80 K/uL Lymphocytes # (Auto) 0.94 K/uL Monocytes # (Auto) 1.06 K/uL Eosinophils # (Auto) 0.28 K/uL Basophils # (Auto) 0.03 K/uL RDW Standard Deviation 48.5 fL RDW Coefficient of Variation 15.2 % Immature Granulocyte % (Auto) 0.6 % Immature Granulocyte # (Auto) 0.08 K/uL Erythrocyte Sedimentation Rate 56 mm/hr Sodium Level 135 mmol/L Potassium Level mmol/L Chloride Level 103 mmol/L Carbon Dioxide Level 26 mmol/L Anion Gap 6.0 mmol/L Blood Urea Nitrogen 19 mg/dl Creatinine 1.03 mg/dl Est Creatinine Clear Calc Drug Dose 70.0 ml/min Estimated GFR () 84.3 Estimated GFR (Non- 72.7 BUN/Creatinine Ratio 18.7 Random Glucose 108 mg/dl Calcium Level 8.6 mg/dl Phosphorus Level 1.8 mg/dl Magnesium Level mg/dl Total Bilirubin 1.3 mg/dl Aspartate Amino Transf (AST/SGOT) U/L Alanine Aminotransferase (ALT/SGPT) 41 U/L Alkaline Phosphatase 78 U/L Total Creatine Kinase U/L Creatine Kinase MB 1.0 ng/ml Troponin I < 0.015 ng/ml C-Reactive Protein 4.89 mg/dl Pro-B-Type Natriuretic Peptide 1787 pg/ml Total Protein 7.5 gm/dl Albumin 3.0 gm/dl Globulin 4.5 gm/dl Albumin/Globulin Ratio 0.7 Lipase 297 U/L Bedside Lactic Acid Venous 3.29 mmol/L Venous Blood pH 7.39 Venous Blood Partial Pressure CO2 44 mmHg Venous Blood Partial Pressure O2 22 mmHg Venous Blood HCO3 26 mmol/L Venous Blood Oxygen Saturation < 60.0 % Venous Blood Base Excess 0.9 mEq/L Test 09/16/17 15:25 09/16/17 16:24 09/16/17 17:28 Influenza Type A (RT-PCR) Neg for Influ A Influenza Type B (RT-PCR) Neg for Influ B Prothrombin Time 24.7 SECONDS Prothromb Time International Ratio 2.4 Activated Partial Thromboplast Time 37.1 SECONDS Partial Thromboplastin Ratio 1.4 Potassium Level 4.2 mmol/L Magnesium Level 1.7 mg/dl Aspartate Amino Transf (AST/SGOT) 37 U/L Total Creatine Kinase 45 U/L Urine Color YELLOW Urine Appearance CLEAR Urine pH 5.0 Urine Specific [place] 1.022 Urine Protein 1+ Urine Glucose (UA) NEG Urine Ketones NEG Urine Occult Blood TRACE Urine Nitrite NEG Urine Bilirubin NEG Urine Urobilinogen NEG Urine Leukocyte Esterase NEG Urine WBC (Auto) 1-5 /hpf Urine RBC (Auto) 0-4 /hpf Urine Hyaline Casts (Auto) 0 /lpf Urine Epithelial Cells (Auto) 0-5 /lpf Urine Bacteria (Auto) NEG Assessment & Plan 72-year-old man presented to the hospital with acute on chronic hypoxic respiratory failure secondary to most likely worsening pulmonary fibrosis, other potential diagnosis is underlying community-acquired pneumonia, also diastolic congestive heart failure is a possibility. Patient will be transferred to [facility] based on power of commercial attorney request and for continuous T of care which also a recommendation that I agree with. Received here 1 L of fluid which did not seem to worsen his breathing which argue against congestive heart failure, he was initially on a nonrebreather currently can hold a decent saturation on a Venturi mask. He also received levofloxacin for potential treatment of pneumonia. Rest of his records including his recent 2D echo are all in [facility]. I think he needs a right sided cath to check on his pulmonary artery pressure. Patient is stable for transfer by ambulance at this point.
[2017-09-16] MEDS ORDERED: METHYLPREDNISOLONE 125 MG VIAL IV STA (18:40)
[2017-09-16 19:06] VITALS: BP 123/72; PULSE 79; O2SAT 94
== END 2017-09-16 21:05 | disposition short-term general hospital (02) ==
LOC: C.EDB 14:39 → C.EDA 21:05
DX: J18.9 Pneumonia, unspecified organism (principal); J96.21 Acute and chronic respiratory failure with hypoxia; I50.9 Heart failure, unspecified; I48.91 Unspecified atrial fibrillation; I25.2 Old myocardial infarction; Z79.01 Long term (current) use of anticoagulants; Z79.899 Other long term (current) drug therapy

== ENCOUNTER → 2017-11-22 | Outpatient (CLI) | payer OTHER, BC ==
[~2017-11-22] MED LIST changes: +CMD/25 PO; -PRED10TA PO; -WARF5TAB7 PO
[2017-11-22 10:01] LABS: INR 2.2 (0.9-1.1)
--- NOTE | 2017-12-09 08:57 | CODING QUERY NO DIAGNOSIS ---
Valid Physician Order Needed A valid physician order must be submitted in order to properly bill for the service(s) provided, including date of service(s), valid diagnosis, and physician signature. If these tests are done on a recurring basis the original physician order must be submitted in order to code and bill for the service(s) provided. Please fax us the original, signed physician order so that we may expedite billing to [phone] DOS 11/22/17 * Prothrombin Time Profile (Missing order with physician's signature) Thank you Janae Somers [facility] Information Management
== END | disposition home or self-care (01) ==
LOC: C.LABWYN 08:45
PROVIDERS: ATTEND Internal Medicine
DX: Z79.01 Long term (current) use of anticoagulants (principal)

== ENCOUNTER → 2017-12-07 | Outpatient (CLI) | payer OTHER, BC | END | disposition home or self-care (01) | LOC: C.LABSPEC 11:50 | PROVIDERS: ATTEND Internal Medicine | DX: Z51.81 Encounter for therapeutic drug level monitoring (principal); Z79.01 Long term (current) use of anticoagulants ==